=== PATIENT | male | born 1985 | race Caucasian/White ===

== ENCOUNTER 2020-11-01 09:48 | Outpatient (REF) | payer OTHER, SELFPAY ==
[2020-11-01 10:19] LABS: COVID-19 Test Positive (Negative)
== END 2020-11-01 09:49 | disposition home or self-care (01) ==
LOC: HO.LAB 09:48
PROVIDERS: Visit Provider Internal Medicine
DX: Z20.822 Contact with and (suspected) exposure to COVID-19 (principal)
CPT/HCPCS: 36415; 87635; C9803

== ENCOUNTER 2020-11-21 07:53 | Outpatient (REF) | payer OTHER, SELFPAY ==
[2020-11-21 08:11] LABS: COVID-19 Test Negative (Negative)
== END 2020-11-21 07:54 | disposition home or self-care (01) ==
LOC: HO.LAB 07:53
PROVIDERS: Visit Provider Internal Medicine
DX: Z20.822 Contact with and (suspected) exposure to COVID-19 (principal)
CPT/HCPCS: 36415; 87635; C9803

== ENCOUNTER 2021-03-23 10:02 | Emergency (ER) | payer MEDICAID, SELFPAY ==
--- NOTE | ~2021-03-23 | US_ITS ---
EXAMINATION: ULTRASOUND EXTREMITY NONVASCULAR, RIGHT CLINICAL INFORMATION: Right groin, question abscess COMPARISON: None TECHNIQUE: Grayscale and sonographic images of the right groin were obtained. FINDINGS: Within the right groin are 2 avascular oval appearing foci the first measures 1.1 x 0.7 x 0.8 cm, heterogeneous in appearance, nonspecific. The second or hyperechoic measures 1.0 x 0.6 x 0.8 cm with a lentiform-like appearance possibly representing a lymph node, though also nonspecific. No focal collections are otherwise identified. US/US extremity nonvascular IMPRESSION: Within the right groin are 2 avascular oval appearing foci one of which demonstrates heterogeneous appearance of the second of which demonstrates a more hyperechoic lentiform-like appearance possibly representing a lymph node. The largest of the 2 measures up to 1.1 cm. Findings are nonspecific but may represent morphologically abnormal-appearing lymph nodes (the first greater than second). Consider short interval follow-up and correlation for recent infectious/inflammatory etiology.
[2021-03-23 10:14] VITALS: BP 115/64; PULSE 65; RESP 18; TEMP 36.6; O2SAT 98; BMI 35.5
[2021-03-23] MEDS: Ibuprofen 800 MG TABLET PO (10:53)
[2021-03-23] MEDS: oxyCODONE HCl Immed Release 5 MG TABLET PO (10:53)
[2021-03-23 11:43] VITALS: BP 108/62; PULSE 46; RESP 18; TEMP 36.6; O2SAT 98
--- NOTE | 2021-03-23 11:59 | ED.GENADULT ---
HPI - General Adult General Chief complaint: Wound/Laceration Stated complaint: lump near groin Time Seen by Provider: 03/23/21 10:35 Source: patient Mode of arrival: ambulatory Limitations: no limitations History of Present Illness HPI narrative: This is a 35-year-old male that presents to the emergency department with a lump in his groin area. He states that he 1st noticed this lump about a week ago, and has progressively been worsening in terms of pain, and size. He states this started as a small lump and has progressively grown over the past week. He states that the pain is intolerable, and the area feels warm, and hard. He states he has not shaved for over a month, and he is not attempted to pop pimples in the area. He has no significant past medical history, and denies history of MRSA. He denies, fevers, chills, chest pain, shortness of breath, nausea, vomiting, diarrhea, abdominal pain. Onset (ago): week(s) (One week progressively worsening) Location: lower extremity (Right groin) Radiation: non-radiation Severity: moderate Severity scale (1-10): 9 Quality: burning and sharp Pain Consistency: constant Relieving factors: none Exacerbating factors: none Associated symptoms: denies other symptoms Related Data Previous Rx's Medication Instructions Recorded cephalexin 500 mg capsule 500 mg PO Q6H 10 Days #40 cap 03/23/21 doxycycline monohydrate 100 mg 100 mg PO BID 10 Days #20 cap 03/23/21 capsule ibuprofen 800 mg tablet 800 mg PO Q8H PRN #14 tab 03/23/21 oxycodone 5 mg tablet 5 mg PO Q6H PRN #14 tab 03/23/21 Allergies Allergy/AdvReac Type Severity Reaction Status Date / Time codeine [CODEINE] Allergy Unknown AGITATION Unverified 03/23/20 19:35 Review of Systems Review of Systems: Constitutional : No Fever, No Chills, Cardiovascular : No Chest Pain, No SOB Respiratory : No Dyspnea Gastrointestinal : No abdominal pain Musculoskeletal : No Joint Swelling Skin : + rash/induration and redness to the groin, and mons pubis. No Foreign bodies, No rash, No surrounding erythema Neuro : No Weakness, No Numbness/tingling Psych : No SI/HI/thoughts of self injury Yes all other systems are reviewed and are negative [facility] Social History Social History Advance Directives: Yes Advance Directives Information Provided: Yes Advance Directives on File: No Physical Exam Vital Signs: Vital Signs: Last Vital Signs Temp 97.8 F 03/23/21 11:43 Pulse 46 L 03/23/21 11:43 Resp 18 03/23/21 11:43 BP 108/62 03/23/21 11:43 Pulse Ox 98 03/23/21 11:43 Body Mass Index 35.5 Vital signs have been reviewed as normal and appeared to be correct. Blood pressure normal. Heart rate normal. Respiration rate normal. Temperature normal. Oxygen saturation normal. Appearance: Alert. Oriented X3. No acute distress. Patient appears well, and does not appear toxic. Head: Normal external exam. Normocephalic. Atraumatic. Able to rotate head bilaterally. Neck: Normal inspection. Neck supple. FROM. No adenopathy. Trachea midline. CVS: + slow rate, normal rhythm ( normal per patient) No murmurs noted. Pulses normal throughout. Respiratory: No respiratory distress. Painless inspiration. Breath sounds normal. No wheezes/rales/rhonchi noted. Chest nontender. No accessory muscle usage noted or decreased air movement noted. Abdomen: Soft and nontender. Bowel sounds normal in all 4 quadrants. No distention noted. No organomegaly noted. No visible injury noted. Back: No CVA tenderness. Full range of motion noted. Skin: Skin warm and dry. Normal skin color. Normal skin turgor. + erythema, calor and induration are noted to the right groin, and right area of the mons pubis. + minimal streaking noted from right mons pubis to right groin. No ingrown hair, abscess, discharge noted upon inspection. + tenderness to palpation to the right groin, and mons pubis. lymphadenopathy noted to the area. Extremities: No lower extremity edema. Extremities exhibit normal range of motion. Extremities nontender. Able to shrug shoulders bilaterally and keep up against resistance. Neuro: Oriented X 3. No motor deficit. No sensory deficit. Reflexes normal. Moving all extremities. No focal motor deficits. Cranial nerves II-XI intact bilaterally. Facial strength normal. Normal cognition. Speech normal. Gait normal. Strength 5/5 throughout. No pronator drift. No tremor noted. No fasciculations noted. No rigidity noted. Muscle tone normal throughout. No asterixis noted. [id number] test normal. Heel to tipton test normal. Tandem gait normal. Does not sway with eyes open. Romberg test negative. Rapid alternating movement upper extremity normal. Rapid alternating movement lower extremity normal. Hand drop from overhead Misses face. NIHSS score 0. Course Course Course Narrative: This is a 35-year-old male that presents to the emergency department with pain to the groin, and mons pubis area. He states that a week ago he noticed a small lump in the mons pubis area that has progressively grown in size, and it has become more painful. He states that it moved from his mons pubis area to his groin. He explains that the pain is not tolerable, and worsening. He has no history of MRSA. Upon physical examination erythema, calor and induration are noted to the mons pubis, and right groin. There is minimal streaking appreciated. Based off of the physical exam findings, and history an ultrasound of the groin has been ordered to rule out abscess. Upon reviewing the ultrasound results it is unclear whether not this is a abscess. For this reason the patient will be sent home on antibiotics he has been instructed to return to the emergency department and or follow-up with his PCP if symptoms worsen. He has been educated on warning signs of infection. Medical Decision Making Imaging Data Extremity ultrasound: Attestation: I personally reviewed and interpreted this imaging study as follows: Radiologist's impression: FINDINGS: Within the right groin are 2 avascular oval appearing foci the first measures 1.1 x 0.7 x 0.8 cm, heterogeneous in appearance, nonspecific. The second or hyperechoic measures 1.0 x 0.6 x 0.8 cm with a lentiform-like appearance possibly representing a lymph node, though also nonspecific. No focal collections are otherwise identified.? US/US extremity nonvascular IMPRESSION: Within the right groin are 2 avascular oval appearing foci one of which demonstrates heterogeneous appearance of the second of which demonstrates a more hyperechoic lentiform-like appearance possibly representing a lymph node. The largest of the 2 measures up to 1.1 cm. Findings are nonspecific but may represent morphologically abnormal-appearing lymph nodes (the first greater than second). Consider short interval follow-up and correlation for recent infectious/inflammatory etiology.? Discharge Plan Discharge Clinical Impression: Abscess, Cellulitis, Lymphadenopathy Patient Disposition: Home, Self-Care Instructions: Cellulitis (ED), Lymphadenopathy (ED), Abscess (ED) Additional Instructions: It is important that you take all your antibiotics as prescribed, do not stop some early, or skip doses. Because of one of your antibiotics it is important for you to stay out direct sunlight Apply warm compresses to the affected area. Return to the emergency department if symptoms worsen, or new symptoms arise such as fevers, chills, shortness of breath or chest pain. Follow-up with your primary care provider Prescriptions: New doxycycline monohydrate 100 mg capsule 100 mg PO BID 10 Days Qty: 20 RF: 0 cephalexin 500 mg capsule 500 mg PO Q6H 10 Days Qty: 40 RF: 0 ibuprofen 800 mg tablet 800 mg PO Q8H PRN (Reason: pain) Qty: 14 RF: 0 oxycodone 5 mg tablet 5 mg PO Q6H PRN (Reason: pain) Qty: 14 RF: 0
== END 2021-03-23 13:01 | disposition home or self-care (01) ==
PROVIDERS: Emergency Provider Emergency Medicine
DX: L03.314 Cellulitis of groin (principal); R59.1 Generalized enlarged lymph nodes; Z79.899 Other long term (current) drug therapy
CPT/HCPCS: 76882; 99284

== ENCOUNTER 2021-03-26 11:16 | Emergency (ER) | payer MEDICAID, SELFPAY ==
[2021-03-26 12:04] VITALS: BP 116/65; PULSE 62; RESP 18; TEMP 36.8; O2SAT 100; BMI 36.2
== END 2021-03-26 16:18 | disposition left against medical advice (07) ==
PROVIDERS: Emergency Provider Emergency Medicine
DX: R10.30 Lower abdominal pain, unspecified (principal)
CPT/HCPCS: 99281; 99282

== ENCOUNTER 2021-03-27 09:37 | Observation (INO) | payer MEDICAID, SELFPAY ==
--- NOTE | ~2021-03-27 | CT_ITS ---
EXAMINATION: CT ABDOMEN AND PELVIS WITH CONTRAST CLINICAL INFORMATION: Right-sided groin abscess. Rule out sinus tracking. COMPARISON: None TECHNIQUE: Multidetector volumetric images were obtained from the superior aspect of the liver through the pubic symphysis following administration 85 mL of Omnipaque 350 intravenous contrast. Sagittal and coronal reformatted images were obtained on the technologist's workstation. Oral contrast: No. This CT examination was performed using dose optimization techniques as appropriate, variously including the following: *Automated exposure control *Adjustment of mA and/or kV according to patient size (this includes techniques or standardized protocols for targeted exams where dose is matched to indication/reason for exam; i.e. extremities or head) *Use of iterative reconstruction technique DLP: 960 mGy-cm FINDINGS: LUNG BASES: The lung bases are clear. LIVER, GALLBLADDER, AND BILIARY TREE: The gallbladder is unremarkable with no evidence of radiopaque gallstones, gallbladder wall thickening, or obvious pericholecystic inflammatory changes. PANCREAS: Unremarkable. SPLEEN: Unremarkable. ADRENAL GLANDS: Unremarkable. KIDNEYS AND URETERS: Both kidneys are normal size, shape and position. There are no radiopaque calculi, enhancing renal mass or hydronephrosis. BLADDER: Unremarkable. GASTROINTESTINAL TRACT: There is scattered stool and gas seen throughout the colon without significant distention. The small bowel loops are normal caliber. The appendix is normal caliber. ABDOMINAL WALL: No significant hernia is appreciated. There is no abscess seen in the right groin. LYMPH NODES: Normal. VASCULAR: Unremarkable. PELVIC VISCERA: Unremarkable. OSSEOUS STRUCTURES: No lytic or sclerotic process seen. CT/CT abdomen pelvis w con IMPRESSION: No acute intra-abdominal process seen. Especially, there is no right groin mass, abscess, adenopathy or hernia. Normal appendix. Mild constipation.
[2021-03-27 09:40] VITALS: BP 132/68; PULSE 59; RESP 18; TEMP 36.7; O2SAT 100; BMI 36.2
--- NOTE | 2021-03-27 09:50 | ED.SKABFB ---
HPI - Skin/Abscess/Foreign Bdy General Chief complaint: Skin/Abscess/Foreign Body Stated complaint: cyst Time Seen by Provider: 03/27/21 09:40 Source: patient Mode of arrival: ambulatory Limitations: no limitations History of Present Illness HPI narrative: This is a 35-year-old male who is seen here on 03/23/2021 for an abscess in the right groin he is prescribed doxycycline, and Keflex which he just started taking yesterday beacause he reports he has no insurance and had to wait to get paid to fill the medications prescribed. He states that the abscess is getting worse, and becoming more painful and tender. Ambulation makes the pain worse. he reports after taking the antibiotics about 4-5 hours after he developed nausea, vomiting, subjective fevers and chills. He reports 10/10 pain. He denies shortness of breath, chest pain, abdominal pain, recent sick contacts. MD complaint: abscess/boil (Right groin) Onset (ago): day(s) (4) Severity: severe Severity scale (1-10): 10 Quality: constant Pain Consistency: constant Relieving factors: none Exacerbating factors: movement Associated symptoms: fever, chills, nausea, vomiting and malaise Treatments prior to arrival: other (Doxycycline and Keflex.) Related Data Home Medications Medication Instructions Recorded Confirmed cephalexin 500 mg tablet 500 mg PO Q6H 03/27/21 03/27/21 doxycycline monohydrate 100 mg 100 mg PO BID 03/27/21 03/27/21 capsule ibuprofen 200 mg tablet 400 mg PO Q6H PRN 03/27/21 03/27/21 Allergies Allergy/AdvReac Type Severity Reaction Status Date / Time codeine [CODEINE] Allergy Unknown AGITATION Verified 03/27/21 09:40 Review of Systems Review of Systems: Constitutional : No Weight loss, + Fever, + Chills, No Night Sweats, No Fatigue, + Malaise ENT/Mouth: No ear pain, No sore throat, No Difficulty swallowing Cardiovascular : No Chest Pain, No SOB, No Dyspnea on Exertion, No Orthopnea, NoEdema, No Palpitations Respiratory : No Cough, No Sputum, No Wheezing, No Dyspnea Gastrointestinal : + Nausea, + Vomiting, No abdominal pain, No Diarrhea, No blood streaked emesis, No coffee-ground emesis, No gross hematemesis, No blood streak stool, No gross hematochezia, No Melena Genitourinary : No irregular bleeding, No Dysuria, No Urinary Frequency, No Hematuria,No Urinary Incontinence, No Urgency, No Flank Pain Musculoskeletal : No joint pain, No Myalgias, No Joint Swelling Skin : + purulent drainage & pain from abcess in right groin area, + redness to right groin Neuro : No Weakness, No Numbness, No Paresthesias, No Loss of Consciousness, NoDizziness, No Headache Psych : No Social Issues, Heme/Lymph: No Bruising, No Bleeding,No Lymphadenopathy Endocrine : No Polyuria, No Polydipsia, No Temperature Intolerance Yes all other systems are reviewed and are negative [facility] Social History Social History Advance Directives: No Advance Directives Information Provided: No Physical Exam Vital Signs: Vital Signs: Last Vital Signs Temp 98.8 F 03/27/21 12:32 Pulse 82 03/27/21 12:32 Resp 18 03/27/21 12:32 BP 114/56 L 03/27/21 12:32 Pulse Ox 98 03/27/21 12:32 Body Mass Index 36.2 vital signs have been reviewed as normal and appeared to be correct. Blood pressure normal. Heart rate normal. Respiration rate normal. Temperature normal. Oxygen saturation normal. Appearance: Alert. Oriented X3. No acute distress. + Patient is an evident pain, and appears uncomfortable. Head: Normal external exam. Normocephalic. Eyes: PERRLA. EOMI. Conjunctiva and sclera normal. Eyelids normal. ENT: Pharynx normal. Uvula midline. Moist mucous membranes. No trismus noted. No drooling noted. No muffled voice noted. Neck: Normal inspection. Neck supple. FROM. No adenopathy. No meningeal signs. CVS: Normal heart rate and rhythm. Heart sound normal. No murmurs noted. Pulses normal throughout. Respiratory: No respiratory distress. Painless inspiration. Breath sounds normal. No wheezes/rales/rhonchi noted. Chest nontender. No accessory muscle usage noted or decreased air movement noted. Abdomen: Soft and nontender. Nondistended. No guarding. No rigidity. Bowel sounds normal in all 4 quadrants. No distention noted. No organomegaly noted. No visible injury noted. No rebound tenderness. Back: No CVA tenderness. Full range of motion noted. Skin: Skin warm and dry. Normal skin color. Normal skin turgor. + two [id number] purulent draining abscesses are noted in the right groin/edge of the lateral right mons pubis region region, + erythema and calor to right groin, + vertical right lymphadenopathy, unable able to rule out sinustracts under abscess Extremities: Extremities exhibit normal range of motion. Extremities nontender. Neuro: Oriented X 3. No motor deficit. No sensory deficit. Reflexes normal. Normal steady gait. Course Course Course Narrative: 10am - This is a 37 year old male who was seen in the emergency department on 03/23/2021 for an abscess in the right groin. On that day an US was done which showed: Within the right groin are 2 avascular oval appearing foci one of which demonstrates heterogeneous appearance of the second of which demonstrates a more hyperechoic lentiform-like appearance possibly representing a lymph node. The largest of the 2 measures up to 1.1 cm. Findings are nonspecific but may represent morphologically abnormal-appearing lymph nodes (the first greater than second). Consider short interval follow-up and correlation for recent infectious/inflammatory etiology.? Based off of these ultrasound findings the abscess was not large enough so it was not drained , he was discharged home on doxycycline and Keflex. He has not been able to tolerate these antibiotics, and he reports nausea, and vomiting at home. Today he presents with worsening right groin pain, fevers, chills, nausea, vomiting for 4 days. Upon physical examination he is afebrile, not tachypneic, and not tachycardic, there is exquisite tenderness to the right groin, and mons pubis. There is also worsening erythema, and calor to the area. Right sided vertical lymphadenopathy is noted. There are 3 evident abscesses, 1 of which is draining purulent discharge. The 2 other are tender and appear much larger than they did 4 days ago. Unable to rule out sinus tract at this time Plan- CBC, CMP, COVID, ESR, CRP, lactic, Mag, UA and blood cultures have been ordered. Fluids, Zosyn, Zofran, morphineand topical lidocaine have also been ordered. He has also been moved over to the main emergency department, as he requires IV antibiotics and possible hospital admission. A CT scan of the abdomen and pelvis have been ordered to rule out sinus tracking. Reevaluation(s) Reevaluation #1: 1352-CT scan shows no acute intra-abdominal process is seen no right groin mass abscess adenopathy or hernia. No leukocytosis, normal lactic acid. Just spoke to Dr. Gómez will be admitting the patient to the medical service. He recommended starting the patient on vancomycin, and reaching out for surgical consult (Dr. Lopez) Both of these orders have been put in. Reevaluation #2: Dr. Lopez has admitted the patient to his service and the hospitalist will consult. Time: 16:52 MDM - Skin/Abscess/Foreign Bdy Medical Records Attestation: I reviewed the patient's medical records. Lab Data Attestation: I reviewed the patient's lab results. Result diagrams: 03/27/21 10:35 03/27/21 10:35 Labs: Lab Results 03/27/21 03/27/21 03/27/21 Range/Units 10:35 10:35 10:35 WBC 7.5 (4.8-10.8) X10*3/uL RBC 4.25 L (4.60-5.80) X10*6/uL Hgb 13.2 L (14.0-18.0) g/dl Hct 37.2 L (42-52) % MCV 87.5 (80-98) fL MCH 31.1 (27.0-33.0) pg MCHC 35.5 (31.0-36.0) g/dl RDW 11.9 (11.0-16.0) % Plt Count 189 (160-400) X10*3/uL MPV 11.9 (9.4-12.4) fL Immature Gran % (Auto) 0.3 (0.0-0.4) % Neut % (Auto) 70.5 (45-73) % Lymph % (Auto) 18.7 L (20-40) % Mora % (Auto) 7.3 (2-11) % Eos % (Auto) 2.9 (0-4) % Baso % (Auto) 0.3 (0-2) % Lymph # (Auto) 1.4 (1.2-4.9) X10*3/uL Mora # (Auto) 0.6 (0.1-1.2) X10*3/uL Eos # (Auto) 0.2 (0.0-0.4) X10*3/uL Baso # (Auto) 0.0 (0.0-0.2) X10*3/uL Abs Immat Gran (auto) 0.02 (0.00-0.03) X10*3/uL Absolute Neuts (auto) 5.3 (2.0-8.3) X10*3/uL Absolute Nucleated RBC 0.000 (0.0-0.012) X10*3/uL Nucleated RBC % (auto) 0.0 (0.0-0.2) /100WBC ESR 44 H (0-15) MM/HR Sodium 139 (135-145) mmol/L Potassium 3.7 (3.3-5.1) mmol/L Chloride 105 (96-108) mmol/L Carbon Dioxide 26 (22-29) mmol/L Anion Gap 12 (12-20) BUN 7 L (9-16) mg/dL Creatinine 0.90 (0.5-1.4) mg/dL Estim Creat Clear Calc 149.6 Estimated GFR > 60 Random Glucose 138 H (60-115) mg/dL Lactic Acid (0.5-2.0) mmol/L Calcium 8.8 (8.4-10.2) mg/dL Magnesium 2.0 (1.6-2.6) mg/dL Total Bilirubin 1.0 (0.0-1.0) mg/dL AST 18 (5-37) U/L ALT 32 (0-40) U/L Alkaline Phosphatase 73 (39-117) U/L C-Reactive Protein (< or = 0.50) mg/dL Total Protein 7.0 (6.5-8.0) g/dL Albumin 4.1 (3.5-5.0) g/dL COVID-19 (MYAH) (Negative) COVID-19 Clin Com 03/27/21 03/27/21 03/27/21 Range/Units 10:35 10:35 10:40 WBC (4.8-10.8) X10*3/uL RBC (4.60-5.80) X10*6/uL Hgb (14.0-18.0) g/dl Hct (42-52) % MCV (80-98) fL MCH (27.0-33.0) pg MCHC (31.0-36.0) g/dl RDW (11.0-16.0) % Plt Count (160-400) X10*3/uL MPV (9.4-12.4) fL Immature Gran % (Auto) (0.0-0.4) % Neut % (Auto) (45-73) % Lymph % (Auto) (20-40) % Mora % (Auto) (2-11) % Eos % (Auto) (0-4) % Baso % (Auto) (0-2) % Lymph # (Auto) (1.2-4.9) X10*3/uL Mora # (Auto) (0.1-1.2) X10*3/uL Eos # (Auto) (0.0-0.4) X10*3/uL Baso # (Auto) (0.0-0.2) X10*3/uL Abs Immat Gran (auto) (0.00-0.03) X10*3/uL Absolute Neuts (auto) (2.0-8.3) X10*3/uL Absolute Nucleated RBC (0.0-0.012) X10*3/uL Nucleated RBC % (auto) (0.0-0.2) /100WBC ESR (0-15) MM/HR Sodium (135-145) mmol/L Potassium (3.3-5.1) mmol/L Chloride (96-108) mmol/L Carbon Dioxide (22-29) mmol/L Anion Gap (12-20) BUN (9-16) mg/dL Creatinine (0.5-1.4) mg/dL Estim Creat Clear Calc Estimated GFR Random Glucose (60-115) mg/dL Lactic Acid 0.8 (0.5-2.0) mmol/L Calcium (8.4-10.2) mg/dL Magnesium (1.6-2.6) mg/dL Total Bilirubin (0.0-1.0) mg/dL AST (5-37) U/L ALT (0-40) U/L Alkaline Phosphatase (39-117) U/L C-Reactive Protein 7.80 H (< or = 0.50) mg/dL Total Protein (6.5-8.0) g/dL Albumin (3.5-5.0) g/dL COVID-19 (MYAH) Negative (Negative) COVID-19 Clin Com See Note Imaging Data ct scan of abd/pelvis c IV contrast : Attestation: I personally reviewed and interpreted this imaging study as follows: Radiologist's impression: FINDINGS: LUNG BASES: The lung bases are clear. LIVER, GALLBLADDER, AND BILIARY TREE: The gallbladder is unremarkable with no evidence of radiopaque gallstones, gallbladder wall thickening, or obvious pericholecystic inflammatory changes. PANCREAS: Unremarkable. SPLEEN: Unremarkable. ADRENAL GLANDS: Unremarkable. KIDNEYS AND URETERS: Both kidneys are normal size, shape and position. There are no radiopaque calculi, enhancing renal mass or hydronephrosis. BLADDER: Unremarkable. GASTROINTESTINAL TRACT: There is scattered stool and gas seen throughout the colon without significant distention. The small bowel loops are normal caliber. The appendix is normal caliber. ABDOMINAL WALL: No significant hernia is appreciated. There is no abscess seen in the right groin. LYMPH NODES: Normal. VASCULAR: Unremarkable. PELVIC VISCERA: Unremarkable. OSSEOUS STRUCTURES: No lytic or sclerotic process seen. IMPRESSION: No acute intra-abdominal process seen. Especially, there is no right groin mass, abscess, adenopathy or hernia. Normal appendix. Mild constipation. Critical Care Time Critical Care Time Critical Care Time: Yes Total Critical Care Time: 60 Attestation: I personally attest to this time spent taking care of the patient Discharge Plan Discharge Clinical Impression: Cellulitis, Abscess of skin or subcutaneous tissue, Nausea & vomiting Patient Disposition: Admitted As Inpatient
[2021-03-27] MEDS: Lidocaine 4 % Cream KIT 1 APPL TOPICAL (10:20)
[2021-03-27] MEDS: ondansetron HCL 4 MG/2 ML VIAL IVPUSH (10:20)
[2021-03-27] MEDS: Morphine Sulfate 4 MG/ML CARTRIDGE IVPUSH ×3 (10:20→23:55)
[2021-03-27] MEDS: Lidocaine HCl 1 % MPF 5 ML VIAL SUBCUT (10:26)
[2021-03-27] MEDS: 0.9 % Sodium Chloride 1,000 ML 999 ML IVCONT (10:26)
[2021-03-27] MEDS: Piperacillin Sodium/Tazobactam 3.375 GM in 0.9 % Sodium Chloride 50 ML IV ×2 (10:43→20:00)
[2021-03-27 10:47] LABS: MANUAL DIFF FLAG NO
[2021-03-27 10:49] LABS: Basophils Percent Auto 0.3 % (0-2); Eosinophils Absolute Auto 0.2 X10*3/uL (0.0-0.4); Eosinophils Percent Auto 2.9 % (0-4); Hematocrit 37.2 % (42-52); Hemoglobin 13.2 g/dl (14.0-18.0); Imm Gran Abs Auto 0.02 X10*3/uL (0.00-0.03); Imm Gran Pct Auto 0.3 % (0.0-0.4); Lymphocytes Absolute Auto 1.4 X10*3/uL (1.2-4.9); Lymphocytes Percent Auto 18.7 % (20-40); Mean Corpuscular HGB Conc 35.5 g/dl (31.0-36.0); Mean Corpuscular Hemoglobin 31.1 pg (27.0-33.0); Mean Corpuscular Volume 87.5 fL (80-98); Mean Platelet Volume 11.9 fL (9.4-12.4); Monocytes Absolute Auto 0.6 X10*3/uL (0.1-1.2); Monocytes Percent Auto 7.3 % (2-11); Neutrophils Absolute Auto 5.3 X10*3/uL (2.0-8.3); Neutrophils Percent Auto 70.5 % (45-73); Platelet Count 189 X10*3/uL (160-400); Red Blood Count 4.25 X10*6/uL (4.60-5.80); Red Cell Distribution Width 11.9 % (11.0-16.0); White Blood Count 7.5 X10*3/uL (4.8-10.8)
[2021-03-27 10:59] LABS: Lactic Acid 0.8 mmol/L (0.5-2.0)
[2021-03-27 11:03] LABS: Alanine Aminotransferase 32 U/L (0-40); Albumin Level 4.1 g/dL (3.5-5.0); Alkaline Phosphatase 73 U/L (39-117); Anion Gap 12 (12-20); Aspartate Amino Transferase 18 U/L (5-37); Blood Urea Nitrogen 7 mg/dL (9-16); Calcium 8.8 mg/dL (8.4-10.2); Carbon Dioxide 26 mmol/L (22-29); Chloride 105 mmol/L (96-108); Creatinine Clr Calc Pharmacy 149.6; Estimated Glomerular Filt Rate > 60; Glucose Random 138 mg/dL (60-115); Potassium 3.7 mmol/L (3.3-5.1); Sodium 139 mmol/L (135-145)
[2021-03-27 11:06] LABS: COVID-19 Test Negative (Negative)
[2021-03-27] MEDS: iohexoL 350 MG/ML 100 ML INFUS..BTL 85 ML IV (11:38)
[2021-03-27 11:47] LABS: Erythrocyte Sedimentation Rate 44 MM/HR (0-15)
--- NOTE | 2021-03-27 11:54 | PHA.MEDREC ---
Pharmacy Consult ? Medication Reconciliation Pharmacy has completed the medication reconciliation. There are no remarkable issue for provider's attention. Fanta Parr, SheriD
[2021-03-27 12:32] VITALS: BP 114/56; PULSE 82; RESP 18; TEMP 37.1; O2SAT 98
[2021-03-27] MEDS: vancomycin HCL 1,000 MG, vancomycin HCL 750 MG in 0.9 % Sodium Chloride 500 ML 267.5 MG IV (15:36)
--- NOTE | 2021-03-27 16:30 | PM.HPGS ---
History of Present Illness History of Present Illness Date of Service: 03/27/21 Chief complaint: cyst Narrative: Jf Rascon is a 35 year old male who returns to the emergency department for evaluation of a right groin abscess. He was previously evaluated on 03/23/2021 in the emergency department and noted to have an abscess in the right groin. This was treated with doxycycline and Keflex however the patient was unable to get the prescription filled did not start taking the medication until yesterday. In the meantime the abscess increased in size and pain. The cyst subsequently ruptured producing a large collection of pus. He continues to have pain at this site and return to the emergency department. After taking the antibiotics he developed nausea, vomiting, fever, and chills. He denies a previous history of infection in this location. He denies a previous history of surgery in this location. The patient is admitted for IV antibiotics and local wound care. Review of Systems Review of Systems: Yes all other systems are reviewed and are negative Constitutional: Constitutional: Reports chills, Reports fever(s) and Reports malaise Eyes: Eyes: Reports change in vision ENT: Reports sore throat Cardiovascular: Cardiovascular: Reports chest pain, Reports rapid heart rate and Reports irregular heart rhythm Respiratory: Respiratory: Reports chest congestion, Reports cough and Reports wheezing Gastrointestinal: Gastrointestinal: Reports no additional gastrointestinal complaints Musculoskeletal: Musculoskeletal: Reports no additional musculoskeletal complaints Integumentary/Breasts: Skin/Breast: Reports as per HPI Allergic/Immunologic: Allergic/Immunologic: Reports wheezing PMFSH Social History Social History Advance Directives: No Advance Directives Information Provided: No Meds Allergies Allergy/AdvReac Type Severity Reaction Status Date / Time codeine [CODEINE] Allergy Unknown AGITATION Verified 03/27/21 09:40 Active Medications: Current Medications Pharmacy Consult (Consult Rx Perform Med Rec) 1 each MISCELLANE ONCE PRN PRN Reason: Consult order Home Medications Medication Instructions Recorded Confirmed Last Taken Type cephalexin 500 mg tablet 500 mg PO Q6H 03/27/21 03/27/21 03/26/21 History doxycycline monohydrate 100 mg 100 mg PO BID 03/27/21 03/27/21 03/26/21 History capsule ibuprofen 200 mg tablet 400 mg PO Q6H PRN 03/27/21 03/27/21 03/26/21 History Physical Exam Vital Signs: Vital Signs: Last Vital Signs Temp 98.8 F 03/27/21 12:32 Pulse 82 03/27/21 12:32 Resp 18 03/27/21 12:32 BP 114/56 L 03/27/21 12:32 Pulse Ox 98 03/27/21 12:32 Body Mass Index 36.2 Const: General: no acute distress and well developed Nutritional Appearance: well nourished Orientation/consciousness: patient oriented x3 Limitations: no limitations HENMT: Head: Yes normocephalic and Yes atraumatic Ears: hearing grossly normal bilaterally Resp: Effort & Inspection: normal respiratory effort, no cough, no respiratory distress and no stridor Cardio: Jugular venous distension: no JVD Rate: regular rate Rhythm: regular rhythm GI: Inspection: Yes normal to inspection Palpation (GI): Soft to palpation, nontender, no guarding and not rigid Skin: Other: Abscess located in the crease between the leg and the scrotum with an open draining wound. This is tender to palpation but no fluctuance is appreciated. Purulent discharge is noted in the skin surrounding the open wound. Full body images: 1. Site of abscess right groin Neuro: General: patient oriented x3 Extrem: Other: Abscess as noted above General: Yes no clubbing, cyanosis or edema Results Results Labs: Short CBC 03/27/21 Range/Units 10:35 WBC 7.5 (4.8-10.8) X10*3/uL Hgb 13.2 L (14.0-18.0) g/dl Hct 37.2 L (42-52) % Plt Count 189 (160-400) X10*3/uL BMP 03/27/21 10:35 Sodium 139 Potassium 3.7 Chloride 105 Carbon Dioxide 26 BUN 7 L Creatinine 0.90 Calcium 8.8 Liver Function 03/27/21 Range/Units 10:35 Total Bilirubin 1.0 (0.0-1.0) mg/dL AST 18 (5-37) U/L ALT 32 (0-40) U/L Alkaline Phosphatase 73 (39-117) U/L Albumin 4.1 (3.5-5.0) g/dL Assessment and Plan (1) Abscess of skin or subcutaneous tissue: Status: Acute (2) Cellulitis: Status: Acute 35-year-old male patient with a worsening abscess of the right groin which spontaneously opened and is draining purulence fluid. On examination there is an open wound in the right groin with an area of inflammation surrounding this. No further incision and drainage is required however the patient would benefit from hospitalization and IV antibiotics to reduce the surrounding cellulitis. Quality Stroke Does the patient have a stroke diagnosis?: No VTE Prior VTE?: No VTE Risk Level:: Surgical - low VTE Device Contraindication: N/A - Device Ordered VTE Drug Contraindication: Treatment Not Indicated Procedures Date of Service Date of Service: 03/27/21
[2021-03-27 17:29] LABS: Appearance Urine CLEAR; Color Urine YELLOW; Glucose Urine UA NEG (NEG); Leukocyte Esterase Urine NEG (NEG); Nitrite Urine NEG (NEG); Specific Gravity - Urine <= 1.005 (1.005-1.025); Urine Blood NEG (NEG); Urine Ketones NEG (NEG); Urine Protein NEG (NEG-TRACE)
[2021-03-27 19:50] VITALS: BP 135/69; PULSE 54; RESP 17; TEMP 37.1; O2SAT 100
[2021-03-27] MEDS: 0.9 % Sodium Chloride Flush 3 ML SYRINGE IVFLUSH (23:47)
[2021-03-28] VITALS (9 sets, daily range): BP systolic 106–140; BP diastolic 56–78; PULSE 54–100; RESP 15–19; TEMP 36.4–37.2; O2SAT 97–100
[2021-03-28] MEDS: Piperacillin Sodium/Tazobactam 3.375 GM in 0.9 % Sodium Chloride 50 ML IV ×4 (02:13→19:47)
--- NOTE | 2021-03-28 08:46 | MHC.CM.PN ---
pt claims that he is unhoused at the present. he says he is staying at friends or his cousins . they will also be giving him a ride [place]. pt says he has no existing svcs and uses no AD c ambulation. he denies the need for vna at [place] . dc plan is to his cousin's home no svcs. cm to cont. to follow.
[2021-03-28] MEDS: 0.9 % Sodium Chloride Flush 3 ML SYRINGE IVFLUSH ×3 (09:05→20:28)
[2021-03-28] MEDS: Morphine Sulfate 4 MG/ML CARTRIDGE IVPUSH ×3 (10:36→20:19)
--- NOTE | 2021-03-28 14:10 | MHC.CLN ---
NUTRITION CONSULT NUTRITION CONSULT DUE TO RIGHT GROIN ABSCESS. NOT PRESSURE RELATED. NO ADDITIONAL NUTRITION INTERVENTIONS.
--- NOTE | 2021-03-28 14:26 | PM.PNGS ---
Subjective Subjective Date of Service: 03/28/21 Interval history: Patient continues to have pain in the right groin with drainage. Pain increases with movement. Physical Exam Vital Signs: Vital Signs: Last Vital Signs Temp 97.5 F 03/28/21 12:00 Pulse 75 03/28/21 12:00 Resp 15 03/28/21 12:00 BP 140/56 H 03/28/21 12:00 Pulse Ox 100 03/28/21 12:00 Body Mass Index 36.2 Const: General: alert and awake Nutritional Appearance: well nourished Orientation/consciousness: patient oriented x3 Limitations: no limitations Resp: Effort & Inspection: normal respiratory effort GI: Inspection: Yes normal to inspection Palpation (GI): Soft to palpation, nontender, no guarding and not rigid Skin: Other: Right groin with an open and draining abscess collection, decreased erythema noted, tender to palpation still. Neuro: General: patient oriented x3 Extrem: Other: No edema Procedures Date of Service Date of Service: 03/28/21 Progress Note: A&P Assessment and plan (1) Abscess of skin or subcutaneous tissue: Status: Acute Assessment and Plan: 35-year-old male patient with an abscess in the right groin which drained spontaneously now is open and draining. He continues to have pain in the groin although the erythema on examination appears improved. Will continue the antibiotics and local wound care with dry sterile dressings applied to the wound. Fall Risk Details Current Medications: Current Medications Acetaminophen (Acetaminophen 325 Mg Tablet) 650 mg PO Q6H PRN PRN Reason: Pain, Mild (Pain Scale 1-3) Piperacillin Sod/Tazobactam (Sod 3.375 gm/ Sodium Chloride) 50 mls @ 100 mls/hr IV Q6H [facility] Last Admin: 03/28/21 13:50 Dose: 100 mls/hr Documented by: Morphine Sulfate (Morphine Sulfate 4 Mg/Ml Cartridge) 4 mg IVPUSH Q4H PRN; Protocol PRN Reason: Pain, Severe (Pain Scale 7-10) Last Admin: 03/28/21 10:36 Dose: 4 mg Documented by: Ondansetron HCl (Ondansetron Hcl 4 Mg/2 Ml Vial) 4 mg IVPUSH Q8H PRN PRN Reason: Nausea and Vomiting Oxycodone HCl (Oxycodone Hcl Immed Release 5 Mg Tablet) 5 mg PO Q6H PRN PRN Reason: Pain, Moderate (Pain Scale 4-6 Pharmacy Consult (Consult Rx Perform Med Rec) 1 each MISCELLANE ONCE PRN PRN Reason: Consult order Sodium Chloride (0.9 % Sodium Chloride Flush 3 Ml Syringe) [facility] Last Admin: 03/28/21 09:05 Dose: 3 ml Documented by: Zolpidem Tartrate (Zolpidem Tartrate 5 Mg Tablet) 5 mg PO BEDTIME PRN PRN Reason: Insomnia Time Spent With Patient Time: Total time spent is greater than 50% in coordination of care (as documented) at patient's floor/unit and/or counseling patient: Time with patient: 15 - 24 minutes Quality Stroke Does the patient have a stroke diagnosis?: No VTE Prior VTE?: No VTE Risk Level:: Surgical - low VTE Device Contraindication: N/A - Device Ordered VTE Drug Contraindication: Treatment Not Indicated
[2021-03-29] MEDS: Piperacillin Sodium/Tazobactam 3.375 GM in 0.9 % Sodium Chloride 50 ML IV ×2 (03:30→07:46)
[2021-03-29 04:00] VITALS: BP 128/76; PULSE 57; RESP 16; TEMP 36.9; O2SAT 98
[2021-03-29 07:40] VITALS: BP 118/57; PULSE 54; RESP 16; TEMP 36.4; O2SAT 97
--- NOTE | 2021-03-29 07:41 | PM.DS ---
DS: Providers Provider Date of Service: 03/29/21 Date of admission: 03/27/21 16:29 Date of discharge: 03/29/21 Primary care physician: Subha Physician Admitting clinician: Bora Lopez Discharging clinician: Bora Lopez DS: Diagnosis Discharge Diagnosis (1) Abscess of skin or subcutaneous tissue: Status: Acute DS: Summary Hospital Course Hospital Course: Jf Rascon is a 35 year old male who returns to the emergency department for evaluation of a right groin abscess.? He was previously evaluated on 03/23/2021 in the emergency department and noted to have an abscess in the right groin.? This was treated with doxycycline and Keflex however the patient was unable to get the prescription filled did not start taking the medication until yesterday.? In the meantime the abscess increased in size and pain.? The cyst subsequently ruptured producing a large collection of pus.? He continues to have pain at this site and return to the emergency department.? After taking the antibiotics he developed nausea, vomiting, fever, and chills.? He denies a previous history of infection in this location.? He denies a previous history of surgery in this location.? The patient is admitted for IV antibiotics and local wound care. He was admitted to the surgery service and started on Zosyn. The wound remained open and draining some purulent discharge. DSD were applied to the wound. Over the next two days, the pain and swelling improved. He will be continued on the oral antibiotics as previously prescribed by the ED including Doxycycline 100 mg po BID and Keflex 500 mg po Q6H. I asked him to return to the office in approximately 1 week for a wound check. Time spent discussing smoking cessation with patient: 3 to 10 minutes Status at Discharge Functional status at discharge: independent ambulation Overall status at discharge: patient is back to baseline Time Spent with Patient Time attestation: Total time spent providing and/or coordinating discharge services: Discharge coordination time: Less than 30 minutes Quality: Stroke Does the patient have a stroke diagnosis?: No Physical Exam Vital Signs: Vital Signs: Last Vital Signs Temp 98.4 F 03/29/21 04:00 Pulse 57 03/29/21 04:00 Resp 16 03/29/21 04:00 BP 128/76 03/29/21 04:00 Pulse Ox 98 03/29/21 04:00 Body Mass Index 36.2 Const: General: cooperative and comfortable Nutritional Appearance: well nourished Orientation/consciousness: patient oriented x3 Limitations: no limitations HENMT: Head: Yes normocephalic and Yes atraumatic Resp: Effort & Inspection: normal respiratory effort GI: Inspection: Yes normal to inspection Palpation (GI): Soft to palpation, nontender, no guarding and no hepatosplenomegaly Skin: Other: Open wound right groin, no further erythema and decreased tenderness. Wound is much improved Neuro: General: patient oriented x3 Extrem: Other: wound as noted above General: Yes no clubbing, cyanosis or edema DS: Data Data Completed and Pending Labs on day of discharge: Preliminary micro results at discharge 03/27/21 10:35 Blood Culture - Preliminary Blood - Venous No growth after 24 hours. 03/27/21 10:35 Blood Culture - Preliminary Blood - Venous No growth after 24 hours. Discharge Plan Discharge Patient Disposition: Home, Self-Care Discharge Diagnosis: Abscess right groin Referrals: Bora Lopez MD [Physician] - 1 Week Physician,None [Primary Care Provider] - 1 Week Discharge Medications: Continued doxycycline monohydrate 100 mg Capsule 100 mg PO BID RF: 0 ibuprofen 200 mg Tablet 400 mg PO Q6H PRN (Reason: PAIN/FEVER) RF: 0 cephalexin 500 mg Tablet 500 mg PO Q6H RF: 0 Discharge Orders: Discharge Order (Routine); Ordered 03/29/21 Ordered By: Bora Lopez Diet: advance to usual diet Activity on Discharge: As tolerated Stand Alone Forms: Patient Portal Discharge page Care Plan Goals: resolution of right groin abscess Health Concerns: pain and swelling in right groin Plan of Treatment: IV antibiotics transitioned to oral antibiotics Warm soaks Dry dressings to right groin wound Assessment: Abscess, cellulitis right groin Nausea and vomiting
[2021-03-29] MEDS: 0.9 % Sodium Chloride Flush 3 ML SYRINGE IVFLUSH (07:46)
--- NOTE | 2021-03-29 08:28 | MHC.CM.PN ---
PATIENT IS DISCHARGED HOME - SELF CARE. RN AWARE OF PLAN.
== END 2021-03-29 10:45 | disposition home or self-care (01) ==
LOC: HO.ED 13:09 → HO.EDOVER 16:45 → HO.S3 16:47
PROVIDERS: Physician Assistant Medical; Admitting Provider Surgery; Emergency Provider Emergency Medicine; Visit Provider Surgery
DX: L02.214 Cutaneous abscess of groin (principal); L03.314 Cellulitis of groin; R11.2 Nausea with vomiting, unspecified; Z20.822 Contact with and (suspected) exposure to COVID-19; Z88.6 Allergy status to analgesic agent; Z79.899 Other long term (current) drug therapy
CPT/HCPCS: 36415; 74177; 80053; 81003; 83605; 83735; 85025; 85652; 86140; 87040; 87635; 96361; 96365; 96366; 96367; 96375; 96376; 99218; 99284; 99291; J2270; J2405; J2543; J3370; Q9967

== ENCOUNTER 2021-06-20 13:59 | Outpatient (REF) | payer MEDICAID, SELFPAY ==
[2021-06-20 15:15] LABS: COVID-19 Test Negative (Negative)
== END 2021-06-20 14:00 | disposition home or self-care (01) ==
LOC: HO.LAB 13:59
PROVIDERS: Visit Provider Internal Medicine
DX: Z20.822 Contact with and (suspected) exposure to COVID-19 (principal)
CPT/HCPCS: 36415; 87635; C9803

== ENCOUNTER 2021-08-20 09:46 | Outpatient (REF) | payer MEDICAID, SELFPAY ==
[2021-08-20 10:14] LABS: Binax Internal Control QC Valid; Binax Now Covid-19 Ag Negative (Negative); Binax Performed by: HO.BONILM
== END 2021-08-20 09:47 | disposition home or self-care (01) ==
LOC: HO.HMGCLDS 09:46
PROVIDERS: Visit Provider Physician Assistant
DX: Z13.89 Encounter for screening for other disorder (principal)

== ENCOUNTER 2021-10-04 09:44 | Emergency (ER) | payer MEDICAID, SELFPAY ==
--- NOTE | 2021-10-04 09:50 | ED.GENADULT ---
HPI - General Adult General Chief complaint: General Medical Stated complaint: Knee pain L & R Time Seen by Provider: 10/04/21 09:50 Source: patient Limitations: no limitations History of Present Illness HPI narrative: Patient presents with bilateral quadriceps pain. Pain increases with range of motion and stretching. Patient states for ongoing symptoms x2 days. Patient states no pain in the hamstring area. Patient states he has recently dancing playing with his kids and felt like he pulled a muscle. Pain is 5/10. Patient denies any prior injuries to both knees. Patient denies any recent falls. Symptoms are [id number]. No shortness of breath fever chills or other complaints at this time. Related Data Previous Rx's Medication Instructions Recorded amoxicillin 875 mg-potassium 1 tab PO Q12H 10 Days #20 tab 08/20/21 clavulanate 125 mg tablet ibuprofen 600 mg tablet 600 mg PO Q8H PRN #20 tab 10/04/21 methocarbamol 750 mg tablet 750 mg PO TID PRN #20 tab 10/04/21 Allergies Allergy/AdvReac Type Severity Reaction Status Date / Time codeine [CODEINE] Allergy Unknown AGITATION Verified 08/20/21 09:08 Review of Systems Constitutional: Constitutional: Denies chills, Denies fatigue, Denies fever(s), Denies frequent falls, Denies headache(s) and Denies weakness ENT: Denies headache(s) Cardiovascular: Cardiovascular: Denies chest pain and Denies dyspnea Respiratory: Respiratory: Denies cough and Denies dyspnea Gastrointestinal: Gastrointestinal: Denies nausea and Denies vomiting Musculoskeletal: Musculoskeletal: Denies muscle weakness Comments: Bilateral quadriceps pain Neurologic: Denies frequent falls, Denies headache(s) and Denies weakness Endocrine: Endocrine: Denies fatigue [facility] Past Medical History Attestation statement: The following information was validated with the patient. Social History Social History Patient Tobacco Use Status: Never used Tobacco Advance Directives: No Advance Directives Information Provided: No service: No Current occupational status: unemployed Physical Exam ED Vital Signs: Vital Signs - 24 hr 10/04/21 09:56 Temperature 98.8 F Pulse Rate 59 Respiratory Rate 16 Blood Pressure 118/64 Pulse Oximetry 100 BMI result Body Mass Index 36.2 vital signs have been reviewed as normal and appeared to be correct. Blood pressure normal. Heart rate normal. Respiration rate normal. Temperature normal. Oxygen saturation normal. Appearance: Alert. Oriented X3. No acute distress. Head: Normal external exam. Normocephalic. Atraumatic. Eyes: PERRLA. EOMI. Conjunctiva and sclera normal. Eyelids normal. ENT: Pharynx normal. Uvula midline. Moist mucous membranes. Left ear TM intact and sharp no erythema Neck: Soft full range of motion, no JVD CVS: Heart regular rate and rhythm no murmurs and rubs Respiratory: Breath sounds are clear to auscultation bilaterally. No accessory muscle use noted. Back: Full range of motion noted. Skin: Skin warm and dry. Normal skin color. Normal skin turgor. No rashes/lesions/lacerations noted. Extremities: Positive tenderness in the mid quadriceps bilaterally pain increases range of motion or deep palpation. Posterior aspect of the hamstrings are nontender calf is nontender patient is ambulatory without ataxia moving all extremities purposely. Right and left knee no joint line tenderness negative joint laxity on drawer test. Patella tendon and patellar is nontender. Neuro: Oriented X 3. No motor deficit. No sensory deficit. Reflexes normal. Course Course Course Narrative: Quadriceps Muscle strain Muscle tear Bilateral knee pain. Muscle spasm. Left otitis externa or otitis media 09:59 Symptoms are consistent with muscle skeletal strain of the quadriceps likely due to over exertion and recent activity with his children. Patient also complaining of some left-sided ear popping your visualize TM is intact no erythema. Likely place patient on NSAIDs and Robaxin follow-up is needed. Discharge Plan Discharge Clinical Impression: Muscle strain Patient Disposition: Home, Self-Care Instructions: Muscle Strain (ED) Additional Instructions: Symptoms are likely due to over exertion muscle strain. Medications as directed Return if symptoms worsen Prescriptions: New ibuprofen 600 mg tablet 600 mg PO Q8H PRN (Reason: pain) Qty: 20 0RF methocarbamol 750 mg tablet 750 mg PO TID PRN (Reason: muscle spasm) Qty: 20 0RF No Action amoxicillin-pot clavulanate 875-125 mg tablet 1 tab PO Q12H 10 Days Qty: 20 0RF Stand Alone Forms: Work/School Release
[2021-10-04 09:56] VITALS: BP 118/64; PULSE 59; RESP 16; TEMP 37.1; O2SAT 100; BMI 36.2
== END 2021-10-04 10:21 | disposition home or self-care (01) ==
LOC: HO.ED 10:02
PROVIDERS: Emergency Provider Emergency Medicine
DX: S76.112A Strain of left quadriceps muscle, fascia and tendon, initial encounter (principal); S76.111A Strain of right quadriceps muscle, fascia and tendon, initial encounter; X50.1XXA Overexertion from prolonged static or awkward postures, initial encounter; Y93.41 Activity, dancing; Y92.039 Unspecified place in apartment as the place of occurrence of the external cause; Y99.9 Unspecified external cause status
CPT/HCPCS: 99283

== ENCOUNTER 2021-10-17 09:30 | Emergency (ER) | payer MEDICAID, SELFPAY ==
--- NOTE | ~2021-10-17 | CT_ITS ---
EXAMINATION: CT CERVICAL SPINE WITHOUT CONTRAST CLINICAL INFORMATION: Right arm tingling and neck pain COMPARISON: None TECHNIQUE: 3 mm thin axial and reformatted 2 mm thin sagittal and coronal images of cervical spine were obtained. This CT examination was performed using dose optimization techniques as appropriate, variously including the following: *Automated exposure control *Adjustment of mA and/or kV according to patient size (this includes techniques or standardized protocols for targeted exams where dose is matched to indication/reason for exam; i.e. extremities or head) *Use of iterative reconstruction technique DLP: 710 mGy-cm FINDINGS: There is reversal of cervical lordosis. The vertebral heights and alignment is normal. There is loss of C6-C7 disc height with mild ventral spondylosis. Rest of the disc heights are normal. The craniovertebral junction and C1-C2 disc levels appear unremarkable. There is no visible acute fracture, dislocation or subluxation seen. The prevertebral and paravertebral soft tissues are normal. The airways widely patent visualized thyroid, submandibular and parotid glands are symmetrical and normal. The lung apices are clear. CT/CT cervical spine wo con IMPRESSION: Reversal of cervical lordosis. There is no visible acute fracture, dislocation, lytic or sclerotic process. Fleischner guidelines were followed.
--- NOTE | ~2021-10-17 | XR_ITS ---
EXAMINATION: XR SHOULDER, RIGHT CLINICAL INFORMATION: Right shoulder pain x1 year COMPARISON: None TECHNIQUE: AP external rotation, Grashey, scapular Y, and axillary views of the right shoulder. FINDINGS: The bones and soft tissues are normal. No fracture. Glenohumeral and acromioclavicular alignment is anatomic with normal joint space. No abnormal soft tissue calcifications. XR/XR shoulder RT min 2V IMPRESSION: Unremarkable right shoulder exam.
[2021-10-17 09:34] VITALS: BP 113/71; PULSE 73; RESP 18; TEMP 36; O2SAT 99; BMI 36.2
--- NOTE | 2021-10-17 11:35 | ED.EXTPRO ---
HPI - Extremity Problem General Chief complaint: Extremity Problem Stated complaint: R side arm/shoulder pain Time Seen by Provider: 10/17/21 10:11 Source: patient Mode of arrival: ambulatory History of Present Illness HPI Narrative: 36-year-old male with no significant past medical history presenting to the ED complaining of right neck pain radiating to right shoulder and down RUE x2 weeks with associated numbness/tingling to right shoulder/deltoid. Reports remote history of hyperextension to R shoulder while playing/catching football a year ago, otherwise no recent injury/trauma or fall. Denies weakness. Denies back pain, CP, SOB Complaint: extremity pain and joint pain Onset (ago): week(s) Pain Consistency: constant Related Data Previous Rx's Medication Instructions Recorded amoxicillin 875 mg-potassium 1 tab PO Q12H 10 Days #20 tab 08/20/21 clavulanate 125 mg tablet ibuprofen 600 mg tablet 600 mg PO Q8H PRN #20 tab 10/04/21 methocarbamol 750 mg tablet 750 mg PO TID PRN #20 tab 10/04/21 acetaminophen 500 mg tablet 500 mg PO Q6H PRN #20 tab 10/17/21 (Tylenol Extra Strength) cyclobenzaprine 5 mg tablet 5 mg PO Q8H PRN 5 Days #14 tab 10/17/21 lidocaine 5 % topical patch 1 patch TOPICAL DAILY PRN #30 ea 10/17/21 (Lidoderm) MDD remove after 12 hours naproxen 500 mg tablet 500 mg PO BID PRN 10 Days #20 tab 10/17/21 Allergies Allergy/AdvReac Type Severity Reaction Status Date / Time codeine [CODEINE] Allergy Unknown AGITATION Verified 08/20/21 09:08 Review of Systems Review of Systems: Constitutional: No Fever, No Chills ENT/Mouth: No Ear Pain, No Nasal Congestion, No sore throat, No Rhinorrhea, No Swallowing Difficulty Cardiovascular: No Chest Pain, No SOB Respiratory: No Cough, No Sputum Gastrointestinal: No Nausea, No Vomiting, No Diarrhea, No Constipation, No Abdominal pain Genitourinary:, No Dysuria, No Urinary Frequency, No Urgency, No Flank Pain Musculoskeletal: + joint pain, No Myalgias, No Joint Swelling Skin: No Skin Lesions, No rash Neuro: No Weakness, + Numbness, + Paresthesias Yes all other systems are reviewed and are negative PMFSH Past Medical History Attestation statement: The following information was validated with the patient. Social History Social History Patient Tobacco Use Status: Never used Tobacco Advance Directives: No service: No Current occupational status: unemployed Physical Exam Vital Signs: Vital Signs: Last Vital Signs Temp 96.8 F 10/17/21 09:34 Pulse 73 10/17/21 09:34 Resp 18 10/17/21 09:34 BP 113/71 10/17/21 09:34 Pulse Ox 99 10/17/21 09:34 BMI result Body Mass Index 36.2 Const: General: cooperative, healthy appearing, no acute distress, alert, awake and Physically active Orientation/consciousness: patient oriented x3 Limitations: no limitations HEENT: Head: Yes normal to inspection and Yes atraumatic Ears: hearing grossly normal bilaterally General nose exam: Normal external nose present Face and sinus: Yes normal facial exam Eyes: General: appearance normal, both eyes and all related structures EOM: EOMs intact bilaterally Neck: Other: No midline cervical spinous tenderness/step-off or deformity. Right-sided paraspinal and right-sided trapezius muscle tenderness to palpation. + pain elicited when neck turned to left Neck: Yes normal visual inspection, Yes no meningeal signs, Yes supple and No anterior neck swelling Resp: Effort & Inspection: normal respiratory effort and no respiratory distress Cardio: Rate: regular rate Peripheral pulses: radial pulses present and ulnar radial pulses present : General: Yes no CVA tenderness Back/Spine/Pelvis: Other: No midline thoracic/lumbar spinous tenderness/step-off or deformity Back: no CVA tenderness Thoracic/Lumbar Spine: thoracic and lumbar spine normal to inspection Skin: Rashes: no rashes Wounds: no wounds Neuro: General: patient oriented x3 and no meningeal signs Gait exam (Neuro): Normal gait present Extrem: Other: Right shoulder without deformity tender to AC joint and deltoid. No erythema. Neurovascular intact distally. ROM intact with pain with external rotation. UE strength intact General: Yes normal to inspection Course Course Course Narrative: XR shoulder RT min 2V IMPRESSION: Unremarkable right shoulder exam. CT cervical spine wo con IMPRESSION: Reversal of cervical lordosis. There is no visible acute fracture, dislocation, lytic or sclerotic process.? ? >> results discussed with patient, recommended orthopedic follow-up. Discussed worrisome signs and symptoms MDM - Extremity (Nontraumatic) MDM Narrative Medical decision making narrative: 36-year-old male with no significant past medical history presenting to the ED complaining of right neck pain radiating to right shoulder and down RUE x2 weeks with associated numbness/tingling to right shoulder/deltoid. On exam vital signs stable, NAD/nontoxic, physical exam as above. Concern for cervical radiculopathy vs compression vs MSK spasming/strain vs rotator cuff/tendon or ligamental shoulder injury Plan: CT cervical spine, x-ray, orthopedic follow-up Medical Records Attestation: I reviewed the patient's medical records. Lab Data Attestation: I reviewed the patient's lab results. Discharge Plan Discharge Clinical Impression: Neck pain, Radiculopathy affecting upper extremity Acute shoulder pain Qualifiers: Laterality: right Qualified Code(s): M25.511 - Pain in right shoulder Patient Disposition: Home, Self-Care Instructions: Arthralgia (ED), Acute Neck Pain (ED) Additional Instructions: Your imaging studies were unremarkable. You may have a pinched nerve/muscle spasming or strain. You also could have a rotator cuff or tendon/ligamental injury of her shoulder. Please follow-up with orthopedics. Flexeril is a muscle relaxer, take at night as it makes you drowsy, do not drive, drink alcohol, or operate machinery while taking it Naproxen as an anti-inflammatory / pain medication, take with food Lidoderm patches are numbing patches, apply to painful area In addition take Tylenol at home If symptoms persist or worsen, pain becomes unbearable, you developed urinary retention or incontinence, or weakness return to the ED Prescriptions: New acetaminophen [Tylenol Extra Strength] 500 mg tablet 500 mg PO Q6H PRN (Reason: pain or fever) Qty: 20 0RF lidocaine [Lidoderm] 5 % adhesive patch,medicated 1 patch topical DAILY MDD remove after 12 hours PRN (Reason: pain) Qty: 30 0RF Rx Instructions: leave on most painful area for up to 12 hrs naproxen 500 mg tablet 500 mg PO BID PRN (Reason: pain) 10 Days Qty: 20 0RF cyclobenzaprine 5 mg tablet 5 mg PO Q8H PRN (Reason: pain (scale score 7-10)) 5 Days Qty: 14 0RF No Action ibuprofen 600 mg tablet 600 mg PO Q8H PRN (Reason: pain) Qty: 20 0RF methocarbamol 750 mg tablet 750 mg PO TID PRN (Reason: muscle spasm) Qty: 20 0RF amoxicillin-pot clavulanate 875-125 mg tablet 1 tab PO Q12H 10 Days Qty: 20 0RF Referrals: Sonia Kwan PA-C [Physician [employer] Livestock Farmer] - 1 week Stand Alone Forms: Work/School Release
== END 2021-10-17 12:07 | disposition home or self-care (01) ==
PROVIDERS: Emergency Provider Emergency Medicine
DX: M54.2 Cervicalgia (principal); M25.511 Pain in right shoulder; Z79.899 Other long term (current) drug therapy
CPT/HCPCS: 72125; 73030; 99283; 99284

== ENCOUNTER 2021-10-23 10:02 | Emergency (ER) | payer MEDICAID, SELFPAY ==
[2021-10-23 10:50] VITALS: BP 111/60; PULSE 51; RESP 18; TEMP 36.4; O2SAT 99; BMI 36.3
--- NOTE | 2021-10-23 11:38 | ED_ITS ---
HPI - Extremity Problem General Chief complaint: Extremity Injury, Upper Stated complaint: Pinched nerve R shoulder Time Seen by Provider: 10/23/21 11:30 Source: patient Mode of arrival: ambulatory Limitations: no limitations History of Present Illness HPI Narrative: Patient presents to the emergency department for evaluation of right shoulder pain x3 weeks. Pain radiates to the right lateral neck and down the right upper extremity. He does report some numbness felt over his right anterior shoulder. Denies any recent injury however does report an old football injury about a year ago for he hyperextended his arm. He was evaluated in the emergency department 1 week ago for the same symptoms, reports no worsening of his symptoms but also minimal improvement. He has not yet contacted Orthopedics to schedule follow-up appointment. Denies weakness of the right upper extremity, dropping of objects, back pain, chest pain, shortness of breath difficulty breathing. He is also requesting a work note. Related Data Previous Rx's Medication Instructions Recorded amoxicillin 875 mg-potassium 1 tab PO Q12H 10 Days #20 tab 08/20/21 clavulanate 125 mg tablet ibuprofen 600 mg tablet 600 mg PO Q8H PRN #20 tab 10/04/21 methocarbamol 750 mg tablet 750 mg PO TID PRN #20 tab 10/04/21 acetaminophen 500 mg tablet 500 mg PO Q6H PRN #20 tab 10/17/21 (Tylenol Extra Strength) cyclobenzaprine 5 mg tablet 5 mg PO Q8H PRN 5 Days #14 tab 10/17/21 lidocaine 5 % topical patch 1 patch TOPICAL DAILY PRN #30 ea 10/17/21 (Lidoderm) MDD remove after 12 hours naproxen 500 mg tablet 500 mg PO BID PRN 10 Days #20 tab 10/17/21 cyclobenzaprine 10 mg tablet 10 mg PO TID PRN #10 tab 10/23/21 Allergies Allergy/AdvReac Type Severity Reaction Status Date / Time codeine [CODEINE] Allergy Unknown AGITATION Verified 08/20/21 09:08 Review of Systems Review of Systems: Constitutional: No weight loss, fever, chills, weakness or fatigue. Skin: No rash or itching. Cardiovascular: No chest pain, chest pressure or chest discomfort. No palpitations or pedal edema. Respiratory: No shortness of breath, cough or sputum production. Gastrointestinal: No anorexia, nausea, vomiting or diarrhea. No abdominal pain or blood in stool. Genitourinary: No burning micturition. No urinary frequency or incontinence. Musculoskeletal: Right shoulder pain. No myalgias. No joint swelling. Neuro: No weakness. Positive numbness, positive paresthesia Yes all other systems are reviewed and are negative [facility] Past Medical History Attestation statement: The following information was validated with the patient. Source: old records reviewed Social History Social History Patient Tobacco Use Status: Never used Tobacco Advance Directives: No Advance Directives Information Provided: No service: No Current occupational status: unemployed Physical Exam Vital Signs: Vital Signs: Last Vital Signs Temp 97.6 F 10/23/21 10:50 Pulse 51 10/23/21 10:50 Resp 18 10/23/21 10:50 BP 111/60 10/23/21 10:50 Pulse Ox 99 10/23/21 10:50 BMI result Body Mass Index 36.3 Vital signs have been reviewed as normal and appeared to be correct. Blood pressure normal.? Heart rate normal.? Respiration rate normal. Temperature normal.? Oxygen saturation normal. Appearance: Alert.?Oriented to person, place and time. No acute distress.?Normal affect. Eyes: Pupils equal, round and reactive to light.? ENT: Pharynx normal.?? Neck: Normal inspection.? Neck supple.?? CVS: Heart sounds normal. Normal heart rate and rhythm.? Pulses normal.?? Respiratory: No respiratory distress.? Lung sounds clear to auscultation bilaterally?? Abdomen: Soft and non-tender. Skin: Skin warm and dry.? Normal skin color.? Extremities: No lower extremity edema.? No obvious deformity swelling, erythema, or rash to the right shoulder. Tenderness to palpation over AC joint. Neurovascular intact. Full AROM none with some decrease in external rotation due to pain. Pediatric Pathologist strength 5/5 bilaterally. Neuro: Moves all extremities spontaneously. Sensation intact bilaterally. No focal neuro deficits. Ambulates with normal steady gait. Course Course Course Narrative: Patient is a 36-year-old male with no significant past medical history being evaluated for right shoulder pain. One week ago patient had a normal right shoulder x-ray, and CT of the cervical spine with no visible acute fracture dislocation, lytic, or sclerotic process. Was advised to follow-up with Orthopedics, but has not yet contacted them to schedule his appointment. Overall he is well-appearing, symptoms have not worsened they are simply not improved. No weakness, urinary retention, saddle anesthesia, incontinence. He has been using Tylenol and naproxen, which were last used yesterday, cyclobenzaprine with some relief and has a couple of pills left. Lidoderm patch without significant improvement. Discussed the importance of follow-up with orthopedics as previously advised for further evaluation of possible pinched nerve, muscle strain, rotator cuff injury. Patient to be provided with additional course of cyclobenzaprine, shoulder exercises, naproxen and Tylenol as needed, reviewed reasons to return back to the emergency department. Discharge Plan Discharge Clinical Impression: Radiculopathy affecting upper extremity, Arthralgia Patient Disposition: Home, Self-Care Instructions: Arthralgia (ED) Prescriptions: New cyclobenzaprine 10 mg tablet 10 mg PO TID PRN (Reason: muscle spasm) Qty: 10 0RF No Action ibuprofen 600 mg tablet 600 mg PO Q8H PRN (Reason: pain) Qty: 20 0RF methocarbamol 750 mg tablet 750 mg PO TID PRN (Reason: muscle spasm) Qty: 20 0RF acetaminophen [Tylenol Extra Strength] 500 mg tablet 500 mg PO Q6H PRN (Reason: pain or fever) Qty: 20 0RF lidocaine [Lidoderm] 5 % adhesive patch,medicated 1 patch topical DAILY MDD remove after 12 hours PRN (Reason: pain) Qty: 30 0RF Rx Instructions: leave on most painful area for up to 12 hrs naproxen 500 mg tablet 500 mg PO BID PRN (Reason: pain) 10 Days Qty: 20 0RF cyclobenzaprine 5 mg tablet 5 mg PO Q8H PRN (Reason: pain (scale score 7-10)) 5 Days Qty: 14 0RF amoxicillin-pot clavulanate 875-125 mg tablet 1 tab PO Q12H 10 Days Qty: 20 0RF Referrals: Sonia Kwan PA-C [Physician [employer] Vice [employer]] - 1 week Stand Alone Forms: Work/School Release Interventions: ED Discharge Assessment Last Done: 10/23/21 11:56 Discharge Date/Time: 10/23/21 11:57
[2021-10-23] MEDS: Ketorolac Tromethamine 60 MG/2 ML VIAL IM (11:47)
== END 2021-10-23 11:57 | disposition home or self-care (01) ==
PROVIDERS: Emergency Provider Emergency Medicine
DX: M54.12 Radiculopathy, cervical region (principal); M25.511 Pain in right shoulder; Z79.899 Other long term (current) drug therapy
CPT/HCPCS: 96372; 99284; J1885

== ENCOUNTER 2022-02-19 08:33 | Outpatient (REF) | payer MEDICAID, SELFPAY ==
[2022-02-19 08:58] LABS: COVID-19 Test Positive (Negative); IDNOW Serial# 16C4AD1C
== END 2022-02-19 08:34 | disposition home or self-care (01) ==
LOC: HO.LAB 08:33
PROVIDERS: Visit Provider Internal Medicine
DX: Z20.822 Contact with and (suspected) exposure to COVID-19 (principal)
CPT/HCPCS: 87635; C9803

== ENCOUNTER 2022-02-25 10:23 | Outpatient (REF) | payer MEDICAID, SELFPAY ==
[2022-02-25 11:28] LABS: COVID-19 Test Negative (Negative)
== END 2022-02-25 10:24 | disposition home or self-care (01) ==
LOC: HO.LAB 10:23
PROVIDERS: Visit Provider Internal Medicine
DX: Z20.822 Contact with and (suspected) exposure to COVID-19 (principal)
CPT/HCPCS: 87635; C9803

== ENCOUNTER 2022-03-21 09:55 | Emergency (ER) | payer MEDICAID, SELFPAY ==
[2022-03-21 09:58] VITALS: BP 120/59; PULSE 57; RESP 18; TEMP 37.1; O2SAT 96; BMI 36.2
[2022-03-21 10:24] LABS: COVID-19 Test Negative (Negative); IDNOW Serial# 9DB6401D
--- NOTE | 2022-03-21 11:24 | ED_ITS ---
HPI - URI/Sore Throat General Chief Complaint: General Medical Stated Complaint: cold symptoms, Dizzy Time Seen by Provider: 03/21/22 11:17 Source: patient Mode of arrival: ambulatory Limitations: no limitations History of Present Illness MD elicited complaint: fever, cough, sore throat, rhinorrhea and nasal congestion Pertinent past history: other (Was positive for COVID on 02/20/2020 to then vaccinated 2 weeks after) Onset (ago): day(s) (Started yesterday) Consistency: constant Severity: mild Description of mucous: clear, watery and yellow Able to tolerate fluids by mouth: Yes Exacerbating factors: nothing Relieving factors: nothing Associated symptoms: fever, chills, myalgias, rhinorrhea, nasal congestion, sore throat, cough and ear pain Treatments prior to arrival: none Related Data Previous Rx's Medication Instructions Recorded amoxicillin 875 mg-potassium 1 tab PO Q12H 10 days #20 tabs 08/20/21 clavulanate 125 mg tablet ibuprofen 600 mg tablet 600 mg PO Q8H PRN pain #20 tabs 10/04/21 methocarbamol 750 mg tablet 750 mg PO TID PRN muscle spasm #20 10/04/21 tabs acetaminophen 500 mg tablet 500 mg PO Q6H PRN pain or fever 10/17/21 (Tylenol Extra Strength) #20 tabs cyclobenzaprine 5 mg tablet 5 mg PO Q8H PRN pain (scale score 10/17/21 7-10) 5 days #14 tabs lidocaine 5 % topical patch 1 patch topical DAILY PRN pain #30 10/17/21 (Lidoderm) ea naproxen 500 mg tablet 500 mg PO BID PRN pain 10 days #20 10/17/21 tabs cyclobenzaprine 10 mg tablet 10 mg PO TID PRN muscle spasm #10 10/23/21 tabs amoxicillin 875 mg-potassium 1 tab PO BID 7 days #14 tabs 03/21/22 clavulanate 125 mg tablet guaifenesin 200 mg/5 mL oral liquid 200 mg (5 mL) PO Q4H PRN 03/21/22 congestion #118 mL Allergies Allergy/AdvReac Type Severity Reaction Status Date / Time codeine [CODEINE] Allergy Unknown AGITATION Verified 08/20/21 09:08 Review of Systems Review of Systems: Constitutional : + fevers/chills/fatigue/malaise, No Weight loss, No Night Sweats ENT/Mouth : No Hearing loss, + Ear Pain, + Nasal Congestion, No Sinus Pain, No Hoarseness, + sore throat, + Rhinorrhea, No Swallowing Difficulty Eyes: No Eye Pain, No Swelling, No Redness, No Foreign Body, No Discharge, No Vision Changes Cardiovascular : No Chest Pain, No SOB, No Dyspnea on Exertion, No Orthopnea, No Edema, No Palpitations Respiratory : + Cough, No Sputum, No Wheezing, No Smoke Exposure, No Dyspnea Gastrointestinal : No Nausea, No Vomiting, + Diarrhea, No Constipation, No abdominal Pain, No Hematochezia, No Melena Genitourinary : no irregular bleeding, No Dysuria, No Urinary Frequency, No Hematuria, No Urinary Incontinence, No Urgency, No Flank Pain, No Urinary Flow Changes, No Hesitancy Musculoskeletal : No joint pain, + Myalgias, No Joint Swelling Skin : No Skin Lesions, No rash Neuro : No Weakness, No Numbness, No Paresthesias, No Loss of Consciousness, No Dizziness, No Headache Psych : No Anxiety/Panic, No Depression, No SI/HI/AH/VH, No Social Issues, Heme/Lymph: No Bruising, No Bleeding,No Lymphadenopathy Endocrine : No Polyuria, No Polydipsia, No Temperature Intolerance Yes all other systems are reviewed and are negative FORMERLY [facility], [facility] Past Medical History Attestation statement: The following information was validated with the patient. Source: old records reviewed and nursing notes reviewed Social History Social History Patient Tobacco Use Status: Never used Tobacco Advance Directives: No service: No Current occupational status: unemployed Physical Exam Vital Signs: Vital Signs: Last Vital Signs Temp 98.8 F 03/21/22 09:58 Pulse 57 03/21/22 09:58 Resp 18 03/21/22 09:58 BP 120/59 L 03/21/22 09:58 Pulse Ox 96 03/21/22 09:58 O2 Del Method 03/21/22 09:58 BMI result Body Mass Index 36.2 vital signs have been reviewed as normal and appeared to be correct. Blood pressure 120/59. Heart rate normal. Respiration rate normal. Temperature normal. Oxygen saturation normal. Appearance: Alert. Oriented X3. No acute distress. Head: Normal external exam. Normocephalic. Atraumatic. Eyes: PERRLA. EOMI. Conjunctiva and sclera normal. Eyelids normal. ENT: EAC normal. Bilateral tympanic membranes erythematous/bulging with loss of normal landmarks consistent with otitis media. Tympanic membranes are intact not perforated. Not consistent mastoiditis. Pharynx normal. Uvula midline. Moist mucous membranes. No lesions/ulcerations or masses noted on the tongue. Normal voice. No trismus noted. No drooling noted. No muffled voice noted. Neck: Normal inspection. Neck supple. FROM. No adenopathy. Thyroid Normal. No tracheal deviation noted. No crepitus is noted. No meningeal signs. No neck mass noted. CVS: Normal heart rate and rhythm. Heart sound normal. Pulses normal throughout. No murmurs/rales/gallops. Respiratory: No respiratory distress. Painless inspiration. Breath sounds normal. No wheezes/rales/rhonchi noted. Chest nontender. No crepitus is noted. No accessory muscle usage noted or decreased air movement noted. No signs of trauma. Abdomen: Soft and nontender. Nondistended. No guarding. No rigidity. Bowel sounds normal in all 4 quadrants. No distention noted. No organomegaly noted. Back: Full range of motion noted. Skin: Skin warm and dry. Normal skin color. Normal skin turgor. No rashes/lesions/lacerations noted. Extremities: Extremities exhibit normal range of motion and nontender. Neuro: Oriented X 3. No motor deficit. No sensory deficit. Reflexes normal. Normal steady gait. No focal neuro deficits noted. CN's II-XII intact bilaterally? Vascular: + radial pulses/+ 2 distal pedal pulses/+2 dorsalis pedis b/l. Normal cap refill. No cyanosis noted to upper extremity nails and lower extremity toes nails. Course Course Course Narrative: 36-year-old male who was positive for COVID on 02/19/2022 and was vaccinated for COVID 2 weeks after he was positive presenting to the ER with complaints of fevers up to 102.0, generalized fatigue/malaise, body aches, chills, nasal congestion/rhinorrhea, scratchy throat and left-sided ear pain with a intermittent cough for the past 2 days worse today. Denies recent travel or sick contacts that he is aware of. Also reports some diarrhea. Denies any other symptoms. Patient negative for COVID. No additional labs or imaging indicated at this time. Will DC home antibiotics for left otitis media and symptomatic treatment for URI and instructions to self isolate per CDC guideli brent for COVID and to retest for COVID and 3-5 days and symptoms persist. Patient understands agrees with this plan. MDM - URI/Sore Throat Medical Records Attestation: I reviewed the patient's medical records. Lab Data Attestation: I reviewed the patient's lab results. Labs: Lab Results 03/21/22 Range/Units 10:01 COVID-19 (MY[facility]) Negative (Negative) COVID-19 Clin Com See Note Discharge Plan Discharge Clinical Impression: Acute upper respiratory infection, Acute left otitis media Patient Disposition: Home, Self-Care Instructions: Ear Infection (ED), Upper Respiratory Infection (ED) Prescriptions: New amoxicillin-pot clavulanate 875-125 mg tablet 1 tab PO BID 7 Days Qty: 14 0RF guaifenesin 200 mg/5 mL liquid 200 mg PO Q4H PRN (Reason: congestion) Qty: 118 0RF No Action cyclobenzaprine 10 mg tablet 10 mg PO TID PRN (Reason: muscle spasm) Qty: 10 0RF ibuprofen 600 mg tablet 600 mg PO Q8H PRN (Reason: pain) Qty: 20 0RF methocarbamol 750 mg tablet 750 mg PO TID PRN (Reason: muscle spasm) Qty: 20 0RF acetaminophen [Tylenol Extra Strength] 500 mg tablet 500 mg PO Q6H PRN (Reason: pain or fever) Qty: 20 0RF lidocaine [Lidoderm] 5 % adhesive patch,medicated 1 patch topical DAILY MDD remove after 12 hours PRN (Reason: pain) Qty: 30 0RF Rx Instructions: leave on most painful area for up to 12 hrs naproxen 500 mg tablet 500 mg PO BID PRN (Reason: pain) 10 Days Qty: 20 0RF cyclobenzaprine 5 mg tablet 5 mg PO Q8H PRN (Reason: pain (scale score 7-10)) 5 Days Qty: 14 0RF amoxicillin-pot clavulanate 875-125 mg tablet 1 tab PO Q12H 10 Days Qty: 20 0RF Referrals: Physician,Unknown J [Primary Care Provider] - 3 days (your pcp) Stand Alone Forms: Work/School Release
== END 2022-03-21 11:38 | disposition home or self-care (01) ==
PROVIDERS: Emergency Provider Emergency Medicine
DX: J06.9 Acute upper respiratory infection, unspecified (principal); H66.92 Otitis media, unspecified, left ear; R50.9 Fever, unspecified; R05.9 Cough, unspecified; M79.10 Myalgia, unspecified site; Z20.822 Contact with and (suspected) exposure to COVID-19; Z79.899 Other long term (current) drug therapy
CPT/HCPCS: 87635; 99282; 99283

== ENCOUNTER 2022-10-28 09:58 | Emergency (ER) | payer MEDICAID, SELFPAY ==
--- NOTE | ~2022-10-28 | US_ITS ---
EXAMINATION: US SCROTUM CLINICAL INFORMATION: Left testicular pain. COMPARISON: None available. TECHNIQUE: A sonogram of the scrotum was performed assessing ortega-scale appearance and color Doppler flow. Spectral Doppler analysis of the arterial and venous flow were performed in the testes bilaterally. FINDINGS: RIGHT: Right testicle measures 4.1 x 1.9 x 2.4 cm, volume 10 mL. Microlithiasis. No focal testicular parenchymal lesions are visualized. Spectral Doppler analysis of the arterial and venous flow is normal in the right testis. Right epididymal head is normal in size. No right hydrocele or varicocele is seen. Right epididymal Doppler flow is normal. LEFT: Left testicle measures 4.1 x 1.8 x 2.7 cm, volume 10.4 mL. No focal testicular parenchymal lesions are visualized. Spectral Doppler analysis of the arterial and venous flow is normal in the left testis. Left epididymal head is normal in size. 5 x 4 x 4 mm hypoechoic area in the left epididymal head. Small left hydrocele. No varicocele is seen. Left epididymal Doppler flow is normal. There is a left appendix epididymis. US/US scrotum doppler IMPRESSION: 5 x 4 x 4 mm hypoechoic area in the left. Question epididymitis. Testicular microlithiasis. Urology consultation and follow-up scrotal ultrasound recommended. Small left hydrocele.
--- NOTE | ~2022-10-28 | CT_ITS ---
EXAMINATION: CT PELVIS WITH CONTRAST CLINICAL INFORMATION: Left inguinal hernia. COMPARISON: CT abdomen pelvis 03/27/2021 TECHNIQUE: Helical scanning was performed with submillimeter collimation through the pelvis with the use of oral contrast and during bolus intravenous injection of 85 mL of Omnipaque 350 intravenous contrast. Sagittal and coronal multiplanar 2-D reconstructions were obtained. This CT examination was performed using dose optimization techniques as appropriate, variously including the following: *Automated exposure control *Adjustment of mA and/or kV according to patient size (this includes techniques or standardized protocols for targeted exams where dose is matched to indication/reason for exam; i.e. extremities or head) *Use of iterative reconstruction technique DLP: 499 mGy-cm FINDINGS: There is no hernia of the abdominal wall including the inguinal region bilaterally. No acute change of the bowel. No bowel obstruction. No bowel wall thickening or edema. Moderate volume of stool in the rectum sigmoid. The appendix is visualized and is normal. No pelvic mass. No significant lymphadenopathy. No inflammatory change. No fluid or free air. No osseous abnormality. Hip joints and pelvis are normal. CT/CT pelvis w IV con IMPRESSION: Unremarkable examination.
--- NOTE | ~2022-10-28 | US_ITS ---
EXAMINATION: US SCROTUM CLINICAL INFORMATION: Left testicular pain. COMPARISON: None available. TECHNIQUE: A sonogram of the scrotum was performed assessing ortega-scale appearance and color Doppler flow. Spectral Doppler analysis of the arterial and venous flow were performed in the testes bilaterally. FINDINGS: RIGHT: Right testicle measures 4.1 x 1.9 x 2.4 cm, volume 10 mL. Microlithiasis. No focal testicular parenchymal lesions are visualized. Spectral Doppler analysis of the arterial and venous flow is normal in the right testis. Right epididymal head is normal in size. No right hydrocele or varicocele is seen. Right epididymal Doppler flow is normal. LEFT: Left testicle measures 4.1 x 1.8 x 2.7 cm, volume 10.4 mL. No focal testicular parenchymal lesions are visualized. Spectral Doppler analysis of the arterial and venous flow is normal in the left testis. Left epididymal head is normal in size. 5 x 4 x 4 mm hypoechoic area in the left epididymal head. Small left hydrocele. No varicocele is seen. Left epididymal Doppler flow is normal. There is a left appendix epididymis. US/US scrotum IMPRESSION: 5 x 4 x 4 mm hypoechoic area in the left. Question epididymitis. Testicular microlithiasis. Urology consultation and follow-up scrotal ultrasound recommended. Small left hydrocele.
[2022-10-28 10:03] VITALS: BP 106/56; PULSE 50; RESP 18; TEMP 36.4; O2SAT 100; BMI 36.9
[2022-10-28 10:19] LABS: Appearance Urine Clear; Color Urine Yellow; Glucose Urine UA Negative (Negative); Leukocyte Esterase Urine Trace (Negative); Nitrite Urine Negative (Negative); Specific Gravity - Urine >= 1.030 (1.005-1.025); UMIC TRIGGER UACC YES; Urine Blood Negative (Negative); Urine Ketones Negative (Negative); Urine Protein Trace mg/dL (Neg-Trace)
[2022-10-28 10:24] LABS: Bacteria Urine None Seen (None Seen); Hyaline Casts Urine 0-2 /LPF (0-2); RBC Urine 0-2 /HPF (0-2); Squamous Epithelial Cell Urine 0-2 /HPF (0-2); WBC Urine 0-5 /HPF (0-5)
--- NOTE | 2022-10-28 12:50 | ED_ITS ---
HPI - General Adult General Chief complaint: General Medical Stated complaint: l testicle pain Time Seen by Provider: 10/28/22 12:29 Source: patient Mode of arrival: ambulatory Limitations: no limitations History of Present Illness HPI narrative: 37 yo male healthy here with sudden left sided testicle pain which began after he was lifting a bread box today. Patient reports he vomited after this occurred. No abdominal pain, flank pain, diarrhea, constipation, urinary symptoms, penile discharge. No new sexual partners or concern for STI Related Data Previous Rx's Medication Instructions Recorded amoxicillin 875 mg-potassium 1 tab PO Q12H 10 days #20 tabs 08/20/21 clavulanate 125 mg tablet ibuprofen 600 mg tablet 600 mg PO Q8H PRN pain #20 tabs 10/04/21 methocarbamol 750 mg tablet 750 mg PO TID PRN muscle spasm #20 10/04/21 tabs acetaminophen 500 mg tablet 500 mg PO Q6H PRN pain or fever 10/17/21 (Tylenol Extra Strength) #20 tabs cyclobenzaprine 5 mg tablet 5 mg PO Q8H PRN pain (scale score 10/17/21 7-10) 5 days #14 tabs lidocaine 5 % topical patch 1 patch topical DAILY PRN pain #30 10/17/21 (Lidoderm) ea naproxen 500 mg tablet 500 mg PO BID PRN pain 10 days #20 10/17/21 tabs cyclobenzaprine 10 mg tablet 10 mg PO TID PRN muscle spasm #10 10/23/21 tabs amoxicillin 875 mg-potassium 1 tab PO BID 7 days #14 tabs 03/21/22 clavulanate 125 mg tablet guaifenesin 200 mg/5 mL oral liquid 200 mg (5 mL) PO Q4H PRN 03/21/22 congestion #118 mL doxycycline monohydrate 100 mg 100 mg PO BID #14 caps 10/28/22 capsule ibuprofen 600 mg tablet 600 mg PO Q8H PRN fever or pain 10/28/22 #30 tabs Allergies Allergy/AdvReac Type Severity Reaction Status Date / Time codeine [CODEINE] Allergy Unknown AGITATION Verified 10/28/22 10:07 Review of Systems Review of Systems: Yes all other systems are reviewed and are negative Constitutional: Constitutional: Reports no additional constitutional complaints, Denies body ache(s), Denies chills, Denies fever(s), Denies headache(s) and Denies weakness Eyes: Eyes: Reports no additional eye complaints and Denies change in vision ENT: Reports system reviewed and no additional complaints, except as docume nted, Denies dizziness, Denies headache(s), Denies nasal congestion, Denies nasal discharge and Denies neck pain Cardiovascular: Cardiovascular: Reports no additional cardiovascular complaints, Denies chest pain, Denies leg edema and Denies dyspnea Respiratory: Respiratory: Reports no additional respiratory complaints, Denies cough and Denies dyspnea Gastrointestinal: Gastrointestinal: Reports no additional gastrointestinal complaints, Denies abdominal pain, Denies diarrhea, Reports nausea and Reports vomiting Genitourinary: Genitourinary: Reports testicular pain and Denies urinary incontinence Musculoskeletal: Musculoskeletal: Reports no additional musculoskeletal complaints, Denies back pain, Denies arthralgias, Denies joint swelling, Denies neck pain, Denies numbness and Denies tingling Integumentary/Breasts: Skin/Breast: Reports system reviewed and no additional complaints, except as docu and Denies rash Neurologic: Reports system reviewed and no additional complaints, except as documented, Denies dizziness, Denies headache(s), Denies numbness, Denies tingling and Denies weakness PMFSH Past Medical History Attestation statement: The following information was validated with the patient. Source: old records reviewed and nursing notes reviewed Social History Social History Patient Tobacco Use Status: Never used Tobacco Advance Directives: No Advance Directives Information Provided: Yes service: No Current occupational status: unemployed Physical Exam ED Vital Signs: Vital Signs - 24 hr 10/28/22 10:03 10/28/22 14:46 10/28/22 16:24 Temperature 97.5 F Pulse Rate 50 47 L 47 L Respiratory Rate 18 18 18 Blood Pressure 106/56 L 104/62 99/54 L Pulse Oximetry 100 99 99 Oxygen Delivery Method Room Air Room Air Room Air BMI result Body Mass Index 36.9 Const General: cooperative, healthy appearing, comfortable and no acute distress Orientation/consciousness: patient oriented x3 Limitations: no limitations HENMT Head: Yes normal to inspection Ears: hearing grossly normal bilaterally Eyes General: appearance normal, both eyes and all related structures Neck Neck: Yes normal visual inspection Chest Chest palpation & inspection: normal inspection of the chest Resp Effort & Inspection: normal respiratory effort Cardio Peripheral pulses: Peripheral pulses 2+ throughout GI Inspection: Yes normal to inspection Palpation (GI): Soft to palpation and nontender 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 Bimanual renal exam normal bilaterally and Yes no CVA tenderness Penis: normal penis and circumcised Meatus: meatus normal Scrotum: scrotum normal Testes: Testes normal, no testicular swelling and no testicular tenderness Back/Spine/Pelvis Back: no CVA tenderness Thoracic/Lumbar Spine: thoracic and lumbar spine normal to inspection Skin General skin exam: no rashes or lesions noted Neuro General: patient oriented x3 and moves all extremities Cognition (Neuro): normal cognition Gait exam (Neuro): Normal gait present Course Course Course Narrative: 1356-Ordered pelvis CT to eval for hernia Reevaluation(s) Reevaluation #1: 1700-CT scan is negative. Patient will be treated for epididymitis with ceftriaxone IM and sent home with doxycycline and NSAIDs with urology follow-up. Reviewed worrisome signs and symptoms of when to return to the emergency room. Comfortable plan for discharge home. Medications Administered Discontinued Medications Generic Name Dose Route Start Last Admin Trade Name Freq PRN Reason Stop Dose Admin Ceftriaxone Sodium 500 mg/ 0 mg 10/28/22 16:59 10/28/22 17:34 Lidocaine HCl 1 ml IM 10/28/22 17:00 1 kit ONCE ONE Administration Iohexol 100 ml 10/28/22 15:56 10/28/22 15:57 Iohexol 350 Mg/Ml 100 Ml Infus..Btl IV 10/28/22 15:57 85 ml ONCE ONE Administration Medical Decision Making Medical Decision Making [facility] Narrative: 37-year-old male here with sudden onset left testicle pain after lifting something heavy today with 1 episode of vomiting prior to arrival. Patient had testicular ultrasound and Dopplers ordered from triage Will order UA, CT NG Differential Diagnosis Differential Diagnoses: The differential diagnosis associated with the presentation includes Testicular torsion, inguinal hernia, groin strain Likely epididymitis, STI, renal colic, pyelonephritis Consult Healthcare Provider Management of the patient was discussed with: [employer] 1345-Spoke to leasing consultant urology Dr Mejia in regards to US report (recommended pelvis CT to eval for hernia) Lab Data [facility] Lab Attestation statement: I reviewed the patient's lab results. 10/28/22 14:23 10/28/22 14:23 Labs: Lab Results 10/28/22 10/28/22 10/28/22 Range/Units 10:11 14:23 14:23 WBC 7.7 (4.8-10.8) X10*3/uL RBC 4.55 L (4.60-5.80) X10*6/uL Hgb 13.8 L (14.0-18.0) g/dl Hct 39.4 L (42.0-52.0) % MCV 86.6 (80.0-98.0) fL MCH 30.3 (27.0-33.0) pg MCHC 35.0 (31.0-36.0) g/dl RDW 12.2 (11.0-16.0) % Plt Count 180 (160-400) X10*3/uL MPV 11.4 (9.4-12.4) fL Immature Gran % (Auto) 0.4 (0.0-0.4) % Neut % (Auto) 63.8 (45-73) % Lymph % (Auto) 27.0 (20-40) % [place] % (Auto) 6.5 (2-11) % Eos % (Auto) 2.0 (0-4) % Baso % (Auto) 0.3 (0-2) % Lymph # (Auto) 2.1 (1.2-4.9) X10*3/uL [place] # (Auto) 0.5 (0.1-1.2) X10*3/uL Eos # (Auto) 0.2 (0.0-0.4) X10*3/uL Baso # (Auto) 0.0 (0.0-0.2) X10*3/uL Abs Immat Gran (auto) 0.03 (0.00-0.03) X10*3/uL Absolute Neuts (auto) 4.9 (2.0-8.3) x10*3/uL Absolute Nucleated RBC 0.000 (0.0-0.012) X10*3/uL Nucleated RBC % (auto) 0.0 (0.0-0.2) /100WBC Sodium 141 (135-145) mmol/L Potassium 3.8 (3.3-5.1) mmol/L Chloride 108 (96-108) mmol/L Carbon Dioxide 28 (22-29) mmol/L Anion Gap 9 L (12-20) BUN 15 (9-16) mg/dL Creatinine 0.83 (0.5-1.4) mg/dL Estim Creat Clear Calc 160.7 Estimated GFR > 60 Random Glucose 107 (60-115) mg/dL Calcium 9.0 (8.4-10.2) mg/dL Urine Color Yellow Urine Appearance Clear Urine pH 6.0 (5.0-9.0) Ur Specific [place] >= 1.030 H (1.005-1.025) Urine Protein Trace (Neg-Trace) mg/dL Urine Glucose (UA) Negative (Negative) mg/dL Urine Ketones Negative (Negative) mg/dL Urine Blood Negative (Negative) Urine Nitrite Negative (Negative) Ur Leukocyte Esterase Trace H (Negative) Urine RBC 0-2 (0-2) /HPF Urine WBC 0-5 (0-5) /HPF Ur Squamous Epith Cells 0-2 (0-2) /HPF Urine Bacteria None Seen (None Seen) Hyaline Casts 0-2 (0-2) /LPF Independent Interpretation I performed an independent interpretation of an: Ultrasound and CT Scan Interpretation: I independently reviewed the ultrasound and CT scan agree with radiologist's report Radiology Impression Discussion of test interpretation with radiology: I have reviewed the radiologist's reading. Radiologist Impression: [address] [address] Ultrasound Report Signed Patient: Jf Rascon MR#: [id number] : 1985 Acct:[id number] Age/Sex: 37 / M ADM Date: 10/28/22 Loc: .ED Attending Dr: Ordering Physician: Annelise Flores Date of Service: 10/28/22 Procedure(s): US scrotum Accession Number(s): [id number] cc: Annelise Flores~ EXAMINATION: US SCROTUM CLINICAL INFORMATION: Left testicular pain. COMPARISON: None available. TECHNIQUE: A sonogram of the scrotum was performed assessing ortega-scale appearance and color Doppler flow. Spectral Doppler analysis of the arterial and venous flow were performed in the testes bilaterally. FINDINGS: RIGHT: Right testicle measures 4.1 x 1.9 x 2.4 cm, volume 10 mL. Microlithiasis. No focal testicular parenchymal lesions are visualized. Spectral Doppler analysis of the arterial and venous flow is normal in the right testis. Right epididymal head is normal in size. No right hydrocele or varicocele is seen. Right epididymal Doppler flow is normal. LEFT: Left testicle measures 4.1 x 1.8 x 2.7 cm, volume 10.4 mL. No focal testicular parenchymal lesions are visualized. Spectral Doppler analysis of the arterial and venous flow is normal in the left testis. Left epididymal head is normal in size. 5 x 4 x 4 mm hypoechoic area in the left epididymal head. Small left hydrocele. No varicocele is seen. Left epididymal Doppler flow is normal. There is a left appendix epididymis. US/US scrotum IMPRESSION: 5 x 4 x 4 mm hypoechoic area in the left. Question epididymitis. Testicular microlithiasis. Urology consultation and follow-up scrotal ultrasound recommended. Small left hydrocele. [place] [address] CT Scan Report Signed Patient: Jf Rascon MR#: [id number] : 1985 Acct:[id number] Age/Sex: 37 / M ADM Date: 10/28/22 Loc: .ED Attending Dr: Ordering Physician: Yvette Bullard NP Date of Service: 10/28/22 Procedure(s): CT pelvis w IV con Accession Number(s): [id number] cc: Yvette Bullard NP~ EXAMINATION: CT PELVIS WITH CONTRAST CLINICAL INFORMATION: Left inguinal hernia.? COMPARISON: CT abdomen pelvis 03/27/2021? ? TECHNIQUE: Helical scanning was performed with submillimeter collimation through the pelvis with the use of oral contrast and during bolus intravenous injection of 85 mL of Omnipaque 350 intravenous contrast. Sagittal and coronal multiplanar 2-D reconstructions were obtained. This CT examination was performed using dose optimization techniques as appropriate, variously including the following: *Automated exposure control *Adjustment of mA and/or kV according to patient size (this includes techniques or standardized protocols for targeted exams where dose is matched to indication/reason for exam; i.e. extremities or head) *Use of iterative reconstruction technique DLP: 499 mGy-cm FINDINGS: There is no hernia of the abdominal wall including the inguinal region bilaterally. No acute change of the bowel. No bowel obstruction. No bowel wall thickening or edema. Moderate volume of stool in the rectum sigmoid. The appendix is visualized and is normal. No pelvic mass. No significant lymphadenopathy. No inflammatory change. No fluid or free air. No osseous abnormality. Hip joints and pelvis are normal. CT/CT pelvis w IV con IMPRESSION: Unremarkable examination.? Discharge Plan Discharge Clinical Impression: Acute epididymitis Patient Disposition: Home, Self-Care Instructions: Epididymitis (ED), Testicle Pain (ED) Additional Instructions: Elevate the scrotum Follow-up with urology. Your ct scan was normal. Your ultrasound shows an area on the left side that may be an infection or a hernia. please follow-up with urology for follow-up ultrasound Prescriptions: New doxycycline monohydrate 100 mg capsule 100 mg PO BID Qty: 14 0RF ibuprofen 600 mg tablet 600 mg PO Q8H PRN (Reason: fever or pain) Qty: 30 0RF No Action cyclobenzaprine 10 mg tablet 10 mg PO TID PRN (Reason: muscle spasm) Qty: 10 0RF ibuprofen 600 mg tablet 600 mg PO Q8H PRN (Reason: pain) Qty: 20 0RF methocarbamol 750 mg tablet 750 mg PO TID PRN (Reason: muscle spasm) Qty: 20 0RF acetaminophen [Tylenol Extra Strength] 500 mg tablet 500 mg PO Q6H PRN (Reason: pain or fever) Qty: 20 0RF lidocaine [Lidoderm] 5 % adhesive patch,medicated 1 patch topical DAILY MDD remove after 12 hours PRN (Reason: pain) Qty: 30 0RF Rx Instructions: leave on most painful area for up to 12 hrs naproxen 500 mg tablet 500 mg PO BID PRN (Reason: pain) 10 Days Qty: 20 0RF cyclobenzaprine 5 mg tablet 5 mg PO Q8H PRN (Reason: pain (scale score 7-10)) 5 Days Qty: 14 0RF amoxicillin-pot clavulanate 875-125 mg tablet 1 tab PO BID 7 Days Qty: 14 0RF guaifenesin 200 mg/5 mL liquid 200 mg PO Q4H PRN (Reason: congestion) Qty: 118 0RF amoxicillin-pot clavulanate 875-125 mg tablet 1 tab PO Q12H 10 Days Qty: 20 0RF Referrals: Leni Mejia MD [Physician] - 1 week Stand Alone Forms: Work/School Release Interventions: ED Discharge Assessment Last Done: 10/28/22 17:42 Discharge Date/Time: 10/28/22 17:43
[2022-10-28 14:31] LABS: MANUAL DIFF FLAG NO
[2022-10-28 14:37] LABS: Basophils Percent Auto 0.3 % (0-2); Eosinophils Absolute Auto 0.2 X10*3/uL (0.0-0.4); Hematocrit 39.4 % (42.0-52.0); Hemoglobin 13.8 g/dl (14.0-18.0); Imm Gran Abs Auto 0.03 X10*3/uL (0.00-0.03); Imm Gran Pct Auto 0.4 % (0.0-0.4); Lymphocytes Absolute Auto 2.1 X10*3/uL (1.2-4.9); Mean Corpuscular Hemoglobin 30.3 pg (27.0-33.0); Mean Corpuscular Volume 86.6 fL (80.0-98.0); Mean Platelet Volume 11.4 fL (9.4-12.4); Monocytes Absolute Auto 0.5 X10*3/uL (0.1-1.2); Monocytes Percent Auto 6.5 % (2-11); Neutrophils Absolute Auto 4.9 x10*3/uL (2.0-8.3); Neutrophils Percent Auto 63.8 % (45-73); Platelet Count 180 X10*3/uL (160-400); Red Blood Count 4.55 X10*6/uL (4.60-5.80); Red Cell Distribution Width 12.2 % (11.0-16.0); White Blood Count 7.7 X10*3/uL (4.8-10.8)
[2022-10-28 14:46] VITALS: BP 104/62; PULSE 47; RESP 18; O2SAT 99
[2022-10-28 14:47] LABS: Anion Gap 9 (12-20); Blood Urea Nitrogen 15 mg/dL (9-16); Carbon Dioxide 28 mmol/L (22-29); Chloride 108 mmol/L (96-108); Creatinine Clr Calc Pharmacy 160.7; Estimated Glomerular Filt Rate > 60; Glucose Random 107 mg/dL (60-115); Potassium 3.8 mmol/L (3.3-5.1); Sodium 141 mmol/L (135-145)
[2022-10-28] MEDS: iohexoL 350 MG/ML 100 ML INFUS..BTL IV (15:57)
[2022-10-28 16:24] VITALS: BP 99/54; PULSE 47; RESP 18; O2SAT 99
[2022-10-28] MEDS: cefTRIAXone sodium 500 MG, Lidocaine HCl 1 % MPF 1 ML IM (17:34)
[2022-10-28 18:10] LABS: CT PCR NOT DETECTED (Not Detect.); NG PCR NOT DETECTED (Not Detect.)
== END 2022-10-28 17:43 | disposition home or self-care (01) ==
PROVIDERS: Nurse Practitioner Family; Emergency Provider Emergency Medicine; PCP Internal Medicine
DX: N45.1 Epididymitis (principal); N50.812 Left testicular pain
CPT/HCPCS: 0353U; 36415; 72193; 76870; 80048; 81001; 85025; 93975; 96372; 99284; J0696; Q9967

== ENCOUNTER 2022-12-28 14:14 | Emergency (ER) | payer MEDICAID, SELFPAY ==
--- NOTE | ~2022-12-28 | XR_ITS ---
EXAMINATION: XR HAND, RIGHT CLINICAL INFORMATION: Locked thumb COMPARISON: None available. TECHNIQUE: PA, lateral, and oblique views of the right hand. FINDINGS: No acute fracture or dislocation is seen. There is a question of some subluxation at the first MCP joint. There is some bony irregularity involving the distal aspect of the first metacarpal along the radial aspect degenerative in nature. Could represent old ligament is injury. Some mild irregularity also seen along the ulnar aspect There is also a flared appearance to the base of the fifth metacarpal. This could indicate an old. Correlation recommended clinically XR/XR hand RT 2V IMPRESSION: There is no acute finding in the hand. Findings in the first MCP joint as described and mild subluxation here would need to be considered and some bony changes involving the distal aspect first metacarpal could be degenerative or posttraumatic. Correlation recommended clinically. If further evaluation is warranted recommend MRI.
[2022-12-28 14:24] VITALS: BP 106/61; PULSE 76; RESP 16; TEMP 36.3; O2SAT 98; BMI 37.0
--- NOTE | 2022-12-28 14:25 | ED_ITS ---
HPI - Extremity Injury (Upper) General Chief Complaint: Extremity Injury, Upper Stated Complaint: r thumb inj Related Data Previous Rx's Medication Instructions Recorded amoxicillin 875 mg-potassium 1 tab PO Q12H 10 days #20 tabs 08/20/21 clavulanate 125 mg tablet ibuprofen 600 mg tablet 600 mg PO Q8H PRN pain #20 tabs 10/04/21 methocarbamol 750 mg tablet 750 mg PO TID PRN muscle spasm #20 10/04/21 tabs acetaminophen 500 mg tablet 500 mg PO Q6H PRN pain or fever 10/17/21 (Tylenol Extra Strength) #20 tabs cyclobenzaprine 5 mg tablet 5 mg PO Q8H PRN pain (scale score 10/17/21 7-10) 5 days #14 tabs lidocaine 5 % topical patch 1 patch topical DAILY PRN pain #30 10/17/21 (Lidoderm) ea naproxen 500 mg tablet 500 mg PO BID PRN pain 10 days #20 10/17/21 tabs cyclobenzaprine 10 mg tablet 10 mg PO TID PRN muscle spasm #10 10/23/21 tabs amoxicillin 875 mg-potassium 1 tab PO BID 7 days #14 tabs 03/21/22 clavulanate 125 mg tablet guaifenesin 200 mg/5 mL oral liquid 200 mg (5 mL) PO Q4H PRN 03/21/22 congestion #118 mL doxycycline monohydrate 100 mg 100 mg PO BID #14 caps 10/28/22 capsule ibuprofen 600 mg tablet 600 mg PO Q8H PRN fever or pain 10/28/22 #30 tabs ibuprofen 600 mg tablet 600 mg PO Q6H PRN pain #45 tabs 12/28/22 Allergies Allergy/AdvReac Type Severity Reaction Status Date / Time codeine [CODEINE] Allergy Unknown AGITATION Verified 12/28/22 14:24 [facility] Social History Social History Patient Tobacco Use Status: Never used Tobacco service: No Current occupational status: unemployed Physical Exam Vital Signs: Vital Signs: Last Vital Signs Temp 97.3 F 12/28/22 14:24 Pulse 76 12/28/22 14:24 Resp 16 12/28/22 14:24 BP 106/61 12/28/22 14:24 Pulse Ox 98 12/28/22 14:24 O2 Del Method Room Air 12/28/22 14:24 BMI result Body Mass Index 37.0 Course Course Course Narrative: This is an RME: Additional HPI, ROS, PE not included below will be deferred to primary provider. Patient is a 37-year-old male presents emergency department for evaluation of bright thumb pain, and decreased AROM. States he is unable to flex the digit. Denies any known precipitating injury. 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 No erythema, warmth, rash. Discharge Plan Discharge Clinical Impression: Hand pain Patient Disposition: Elopement Prescriptions: No Action cyclobenzaprine 10 mg tablet 10 mg PO TID PRN (Reason: muscle spasm) Qty: 10 0RF ibuprofen 600 mg tablet 600 mg PO Q8H PRN (Reason: pain) Qty: 20 0RF methocarbamol 750 mg tablet 750 mg PO TID PRN (Reason: muscle spasm) Qty: 20 0RF acetaminophen [Tylenol Extra Strength] 500 mg tablet 500 mg PO Q6H PRN (Reason: pain or fever) Qty: 20 0RF lidocaine [Lidoderm] 5 % adhesive patch,medicated 1 patch topical DAILY MDD remove after 12 hours PRN (Reason: pain) Qty: 30 0RF Rx Instructions: leave on most painful area for up to 12 hrs naproxen 500 mg tablet 500 mg PO BID PRN (Reason: pain) 10 Days Qty: 20 0RF cyclobenzaprine 5 mg tablet 5 mg PO Q8H PRN (Reason: pain (scale score 7-10)) 5 Days Qty: 14 0RF amoxicillin-pot clavulanate 875-125 mg tablet 1 tab PO BID 7 Days Qty: 14 0RF guaifenesin 200 mg/5 mL liquid 200 mg PO Q4H PRN (Reason: congestion) Qty: 118 0RF doxycycline monohydrate 100 mg capsule 100 mg PO BID Qty: 14 0RF ibuprofen 600 mg tablet 600 mg PO Q8H PRN (Reason: fever or pain) Qty: 30 0RF ibuprofen 600 mg tablet 600 mg PO Q6H PRN (Reason: pain) Qty: 45 0RF amoxicillin-pot clavulanate 875-125 mg tablet 1 tab PO Q12H 10 Days Qty: 20 0RF Interventions: ED Discharge Assessment Last Done: 12/28/22 17:59 Discharge Date/Time: 12/28/22 17:59
== END 2022-12-28 17:59 | disposition left against medical advice (07) ==
PROVIDERS: Emergency Provider Emergency Medicine; PCP Internal Medicine
DX: M79.641 Pain in right hand (principal)
CPT/HCPCS: 73120; 99282; 99283

== ENCOUNTER 2022-12-28 20:14 | Emergency (ER) | payer MEDICAID, SELFPAY ==
[2022-12-28 20:31] VITALS: BP 127/73; PULSE 76; RESP 18; TEMP 37.1; O2SAT 99; BMI 37.0
--- NOTE | 2022-12-28 22:17 | ED.EXTPRO ---
HPI - Extremity Problem General Chief complaint: Extremity Injury, Upper Stated complaint: right hand inj Time Seen by Provider: 12/28/22 22:16 Source: patient and RN notes reviewed Mode of arrival: ambulatory Limitations: no limitations History of Present Illness HPI Narrative: This is a 37-year-old male presenting to the emergency department for evaluation of right thumb pain since today. 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 Patient reports that while he was at work he realized that his right thumb was causing him pain and locked up. Patient denies history of similar symptoms in the past. Patient denies any fevers, chills, numbness or tingling. Reports he is able to move his thumb however reports that this causes him pain. Denies taking any medications at home to treat his current symptoms. He is right-handed. No other complaints or concerns at this time. MD Complaint: extremity pain Onset (ago): hour(s) Pain Consistency: constant Location: right and upper extremity Quality: aching Radiation: none Relieving factors: nothing Exacerbating factors: range of motion Associated symptoms: denies other symptoms Related Data Previous Rx's Medication Instructions Recorded amoxicillin 875 mg-potassium 1 tab PO Q12H 10 days #20 tabs 08/20/21 clavulanate 125 mg tablet ibuprofen 600 mg tablet 600 mg PO Q8H PRN pain #20 tabs 10/04/21 methocarbamol 750 mg tablet 750 mg PO TID PRN muscle spasm #20 10/04/21 tabs acetaminophen 500 mg tablet 500 mg PO Q6H PRN pain or fever 10/17/21 (Tylenol Extra Strength) #20 tabs cyclobenzaprine 5 mg tablet 5 mg PO Q8H PRN pain (scale score 10/17/21 7-10) 5 days #14 tabs lidocaine 5 % topical patch 1 patch topical DAILY PRN pain #30 10/17/21 (Lidoderm) ea naproxen 500 mg tablet 500 mg PO BID PRN pain 10 days #20 10/17/21 tabs cyclobenzaprine 10 mg tablet 10 mg PO TID PRN muscle spasm #10 10/23/21 tabs amoxicillin 875 mg-potassium 1 tab PO BID 7 days #14 tabs 03/21/22 clavulanate 125 mg tablet guaifenesin 200 mg/5 mL oral liquid 200 mg (5 mL) PO Q4H PRN 03/21/22 congestion #118 mL doxycycline monohydrate 100 mg 100 mg PO BID #14 caps 10/28/22 capsule ibuprofen 600 mg tablet 600 mg PO Q8H PRN fever or pain 10/28/22 #30 tabs ibuprofen 600 mg tablet 600 mg PO Q6H PRN pain #45 tabs 12/28/22 Allergies Allergy/AdvReac Type Severity Reaction Status Date / Time codeine [CODEINE] Allergy Unknown AGITATION Verified 12/28/22 14:24 Review of Systems Review of Systems: Constitutional: No Weight loss, No Fever, No Chills, No Night Sweats, No Fatigue, No Malaise ENT/Mouth: No Hearing loss, No Ear Pain, No Nasal Congestion, No Sinus Pain, No Hoarseness, No sore throat, No Rhinorrhea, No Swallowing Difficulty Eyes: No Eye Pain, No Swelling, No Redness, No Foreign Body, No Discharge, No Vision Changes Cardiovascular: No Chest Pain, No SOB, No Dyspnea on Exertion, No Orthopnea, No Edema, No Palpitations Respiratory: No Cough, No Sputum, No Wheezing, No Smoke Exposure, No Dyspnea Gastrointestinal: No Nausea, No Vomiting, No Diarrhea, No Constipation, No Abdominal pain, No Hematochezia, No Melena Genitourinary: No irregular bleeding, No Dysuria, No Urinary Frequency, No Hematuria, No Urinary Incontinence/retention, No Urgency, No Flank Pain, No Urinary Flow Changes, No Hesitancy Musculoskeletal: + joint pain, No Myalgias, No Joint Swelling Skin: No Skin Lesions, No rash Neuro: No Weakness, No Numbness, No Paresthesias, No Loss of Consciousness, No Dizziness, No Headache Psych: No Anxiety/Panic, No Depression, No SI/HI/AH/VH, No Social Issues, Heme/Lymph: No Bruising, No Bleeding,No Lymphadenopathy Endocrine: No Polyuria, No Polydipsia, No Temperature Intolerance [facility] Past Medical History Attestation statement: The following information was validated with the patient. Social History Social History Patient Tobacco Use Status: Never used Tobacco Advance Directives: No Advance Directives Information Provided: No service: No Current occupational status: unemployed Physical Exam Vital Signs: Vital Signs: Last Vital Signs Temp 98.7 F 12/28/22 20:31 Pulse 76 12/28/22 20:31 Resp 18 12/28/22 20:31 BP 127/73 12/28/22 20:31 Pulse Ox 99 12/28/22 20:31 O2 Del Method Room Air 12/28/22 20:31 BMI result Body Mass Index 37.0 General: Awake, alert, and oriented X3. No acute distress. HEENT: Normal inspection CVS: Normal heart rate and rhythm. Pulses normal. Respiratory: No respiratory distress Skin: Warm, dry, no rashes noted to exposed skin. Normal skin color. Normal skin turgor. Extremities: Right thumb with mild tenderness to palpation along the thernar eminence. Able to flex and extend at the PIP of the first digit, with pain elicited. No overlying skin changes, erythema, edema or open wounds. Neuro: Oriented X 3. No motor deficit. No sensory deficit. Medications Administered Discontinued Medications Generic Name Dose Route Start Last Admin Trade Name Freq PRN Reason Stop Dose Admin Ketorolac Tromethamine 30 mg 12/28/22 22:33 12/28/22 22:37 Ketorolac Tromethamine 30 Mg/Ml Vial IM 12/28/22 22:34 30 mg ONCE ONE Administration Medical Decision Making Medical Decision Making MDM Narrative: 37 y/o M, with no known medical history, presenting to the emergency department with complaints of right thumb pain since today. No known trauma or injury however noticed pain locking up sensation after lifting and carrying baskets. X-rays revealing bony changes involving the distal aspect of the 1st metacarpal which could be degenerative or posttraumatic. Patient is able to flex and extend at the intrapharngeal joint of the first digit. No overlying skin changes. Discussed these results with patient and symptoms may be attributed to a ligamentous injury in the right thumb for degenerative changes. Given patient's pain I think it is reasonable to follow-up with orthopedics especially as this is involving his right hand. Vital signs stable. Educated the importance of returning with any new or worsening symptoms. Differential Diagnosis Differential Diagnoses: The differential diagnosis associated with the presentation includes Right thumb osteoarthritis, septic arthritis, cellulitis, fracture, ligamentous injury Radiology Impression Discussion of test interpretation with radiology: I have reviewed the radiologist's reading. Radiologist Impression: EXAMINATION: XR HAND, RIGHT CLINICAL INFORMATION: Locked thumb? COMPARISON: None available.? TECHNIQUE: PA, lateral, and oblique views of the right hand. FINDINGS: No acute fracture or dislocation is seen. There is a question of some subluxation at the first MCP joint. There is some bony irregularity involving the distal aspect of the first metacarpal along the radial aspect degenerative in nature. Could represent old ligament is injury. Some mild irregularity also seen along the ulnar aspect There is also a flared appearance to the base of the fifth metacarpal. This could indicate an old. Correlation recommended clinically XR/XR hand RT 2V IMPRESSION: There is no acute finding in the hand. ? Findings in the first MCP joint as described and mild subluxation here would need to be considered and some bony changes involving the distal aspect first metacarpal could be degenerative or posttraumatic. Correlation recommended clinically. If further evaluation is warranted recommend MRI. Dictated By: Elmer Butts MD Signed By: <Electronically signed by Elmer Butts MD in OV> 12/28/22 1521 DD/ 1437 TD/TT:? [employer]: GT Discharge Plan Discharge Clinical Impression: Pain of right thumb Patient Disposition: Home, Self-Care Instructions: Arthralgia (ED) Additional Instructions: Your x-rays showed no fracture, there are some degenerative changes seen in the right thumb. Please take anti-inflammatories as directed. Call orthopedics on Friday for follow-up. If any new or worsening symptoms, including but not limited to fevers, chills, increased redness, numbness or tingling anterior thumb or loss of function, occur please return for re-evaluation. Prescriptions: New ibuprofen 600 mg tablet 600 mg PO Q6H PRN (Reason: pain) Qty: 45 0RF No Action cyclobenzaprine 10 mg tablet 10 mg PO TID PRN (Reason: muscle spasm) Qty: 10 0RF ibuprofen 600 mg tablet 600 mg PO Q8H PRN (Reason: pain) Qty: 20 0RF methocarbamol 750 mg tablet 750 mg PO TID PRN (Reason: muscle spasm) Qty: 20 0RF acetaminophen [Tylenol Extra Strength] 500 mg tablet 500 mg PO Q6H PRN (Reason: pain or fever) Qty: 20 0RF lidocaine [Lidoderm] 5 % adhesive patch,medicated 1 patch topical DAILY MDD remove after 12 hours PRN (Reason: pain) Qty: 30 0RF Rx Instructions: leave on most painful area for up to 12 hrs naproxen 500 mg tablet 500 mg PO BID PRN (Reason: pain) 10 Days Qty: 20 0RF cyclobenzaprine 5 mg tablet 5 mg PO Q8H PRN (Reason: pain (scale score 7-10)) 5 Days Qty: 14 0RF amoxicillin-pot clavulanate 875-125 mg tablet 1 tab PO BID 7 Days Qty: 14 0RF guaifenesin 200 mg/5 mL liquid 200 mg PO Q4H PRN (Reason: congestion) Qty: 118 0RF doxycycline monohydrate 100 mg capsule 100 mg PO BID Qty: 14 0RF ibuprofen 600 mg tablet 600 mg PO Q8H PRN (Reason: fever or pain) Qty: 30 0RF amoxicillin-pot clavulanate 875-125 mg tablet 1 tab PO Q12H 10 Days Qty: 20 0RF Referrals: [facility] [place] [facility] [Provider Group] Interventions: ED Discharge Assessment Last Done: 12/28/22 22:43
[2022-12-28] MEDS: Ketorolac Tromethamine 30 MG/ML VIAL IM (22:37)
== END 2022-12-28 22:46 | disposition home or self-care (01) ==
PROVIDERS: Emergency Provider Internal Medicine
DX: M79.644 Pain in right finger(s) (principal)
CPT/HCPCS: 96372; 99283; 99284; J1885

== ENCOUNTER 2023-05-21 14:11 | Emergency (ER) | payer OTHER, SELFPAY ==
[2023-05-21] VITALS (8 sets, daily range): BP systolic 99–123; BP diastolic 60–69; PULSE 55–79; RESP 16; TEMP 37.2; O2SAT 98–100; BMI 34.2
--- NOTE | 2023-05-21 14:57 | ED_ITS ---
HPI - URI/Sore Throat General Chief Complaint: Fever Stated Complaint: Fever, lightheaded, sore throat Time Seen by Provider: 05/21/23 15:24 Source: patient Mode of arrival: ambulatory Limitations: no limitations History of Present Illness HPI Narrative: 38-year-old male with no significant pmhx presents to the ED today with a complaint of chills, lightheadedness, myalgias and body aches beginning last night. Endorses subjective fever. States he feels lightheaded upon standing and does not recall eating yesterday. Additionally endorses mild sore throat that began yesterday. No known sick contacts. Has not taken any pain medications prior to arrival. He denies fever, headache, nasal congestion, cough, nausea or vomiting, abdominal pain, diarrhea, constipation, dysuria, lower extremity swelling or pain. Denies etoh or ilicit substance use. No recent travel. Related Data Previous Rx's Medication Instructions Recorded amoxicillin 875 mg-potassium 1 tab PO Q12H 10 days #20 tabs 08/20/21 clavulanate 125 mg tablet ibuprofen 600 mg tablet 600 mg PO Q8H PRN pain #20 tabs 10/04/21 methocarbamol 750 mg tablet 750 mg PO TID PRN muscle spasm #20 10/04/21 tabs acetaminophen 500 mg tablet 500 mg PO Q6H PRN pain or fever 10/17/21 (Tylenol Extra Strength) #20 tabs cyclobenzaprine 5 mg tablet 5 mg PO Q8H PRN pain (scale score 10/17/21 7-10) 5 days #14 tabs lidocaine 5 % topical patch 1 patch topical DAILY PRN pain #30 10/17/21 (Lidoderm) ea naproxen 500 mg tablet 500 mg PO BID PRN pain 10 days #20 10/17/21 tabs cyclobenzaprine 10 mg tablet 10 mg PO TID PRN muscle spasm #10 10/23/21 tabs amoxicillin 875 mg-potassium 1 tab PO BID 7 days #14 tabs 03/21/22 clavulanate 125 mg tablet guaifenesin 200 mg/5 mL oral liquid 200 mg (5 mL) PO Q4H PRN 03/21/22 congestion #118 mL doxycycline monohydrate 100 mg 100 mg PO BID #14 caps 10/28/22 capsule ibuprofen 600 mg tablet 600 mg PO Q8H PRN fever or pain 10/28/22 #30 tabs ibuprofen 600 mg tablet 600 mg PO Q6H PRN pain #45 tabs 12/28/22 Allergies Allergy/AdvReac Type Severity Reaction Status Date / Time codeine [CODEINE] Allergy Unknown AGITATION Verified 05/21/23 14:59 Review of Systems 2 Review of Systems: Constitutional: No fever, +chills, fatigue, night sweats, weight changes ENT/Mouth: No ear pain, hearing loss, nasal congestion, sinus pain, rhinorrhea, +sore throat Eyes: No eye pain, swelling, redness, vision changes, discharge Cardio: No chest pain, palpitations, ALBERTO, orthopnea, peripheral edema Pulm: No SOB, cough, sputum, wheezing, dyspnea, hemoptysis GI: No nausea, vomiting, hematemesis, abdominal pain, diarrhea, constipation, hematochezia, melena : No irregular bleeding, dysuria, frequency, urgency, hesitancy, hematuria, flank pain, urinary flow changes, urinary incontinence or retention MSK: No back pain, neck pain, joint pain, +myalgias Skin: No lesions, rashes Neuro: No weakness, numbness, paresthesias, LOC, dizziness, headache, +light headed All other systems reviewed and are negative. [facility] Past Medical History Attestation statement: The following information was validated with the patient. Source: old records reviewed and nursing notes reviewed Social History Social History Patient Tobacco Use Status: Never used Tobacco Advance Directives: No service: No Current occupational status: unemployed Physical Exam 2 Vital Signs: Vital Signs: Last Vital Signs Temp 98.9 F 05/21/23 14:57 Pulse 78 05/21/23 19:34 Resp 16 05/21/23 14:57 BP 112/66 05/21/23 19:06 Pulse Ox 98 05/21/23 19:34 O2 Del Method Room Air 05/21/23 19:34 BMI result Body Mass Index 34.2 Vital signs stable, afebrile Const: General: cooperative, no acute distress, alert and awake; No ill appearing Orientation/consciousness: patient oriented x3 Limitations: no limitations HEENT: Other: Posterior oropharynx with erythema. No edema. No tonsillar exudates. Uvula is midline. No peritonsilar masses. Controlling secretions and speaking in complete sentences. Head: Yes normal to inspection Ears: hearing grossly normal bilaterally General nose exam: Normal external nose present Face and sinus: Yes normal facial exam and Yes sinuses nontender Eyes: General: appearance normal, both eyes and all related structures C onjunctivae: conjunctivae normal Sclerae: sclerae normal Pupils: Equal, round and reactive pupils present Neck: Neck: Yes normal visual inspection, Yes no lymphadenopathy and Yes no meningeal signs Resp: Effort & Inspection: normal respiratory effort Auscultation: clear to auscultation bilaterally Cardio: Rate: regular rate Rhythm: regular rhythm Peripheral pulses: r adial pulses present GI: Other: Abdomen soft, nondistended, nontender to palpation, no rebound tenderness or guarding. Normoactive bowel sounds x4. Inspection: Yes normal to inspection Skin: General skin exam: no rashes or lesions noted Neuro: General: patient oriented x3, gait normal, moves all extremities and no meningeal signs Cranial nerves: Yes CN's II-XII intact bilaterally and Yes Equal, round and reactive pupils present Extrem: General: Yes normal to inspection, Yes capillary refill normal, Yes no joint enlargement and Yes no clubbing, cyanosis or edema Course Course Course Narrative: RME: 38yo M w/no sig PMHx c/o chills, lightheadedness, myalgias/body aches x last night. Admits to feeling pre-syncopal when stands up. +SOB. denies CP, fever EKG, Labs, UA, Viral testing, orthostatics ordered Full HPI, ROS and PE to be performed by primary ED provider. Reevaluation(s) Reevaluation #1: 1610-- CBC with slight leukocytosis to 11.7. No anemia. Chemistry without acute electrolyte abnormality requiring intervention. Lipase WNL. Troponin undetectable. EKG showing normal sinus rhythm with a rate of 64 ppm, QT 390, QTC 402, no acute ischemic changes or ST elevations > unlikely arrhythmia or ACS. PERC score of 0 > unlikely pulmonary embolism. Serology is negative for COVID, influenza, strep. > awaiting orthostatic vital signs 1640-- orthostatic vital signs negative however there was a 20 mmHg drop in systolic BP upon standing, will administer 1 L IV fluids and re-evaluate. > I discussed unremarkable workup with patient. He likely has a viral infection. As he has no tonsillar exudates and tested negative for strep I do not believe that he has strep throat. He has no lymphadenopathy or splenomegaly to suggest mono so swab will not be obtained. 1920-- orthostatic vital signs improved with 1 L of fluid. No longer symptomatic on standing. On review of previous vital signs, patient's blood pressure typically runs on the low side and is around his baseline. Vital signs have remained stable. Patient is afebrile. Symptoms are consistent with a viral infection. Advised patient that management asymptomatic and may take Tylenol or ibuprofen as needed for body aches or fevers. Advised to stay hydrated. Discussed strict return precautions. All questions answered at this time. Patient is agreeable disposition stable for discharge. Medications Administered Discontinued Medications Generic Name Dose Route Start Last Admin Trade Name Freq PRN Reason Stop Dose Admin Sodium Chloride 1,000 mls @ 999 mls/hr 05/21/23 16:15 05/21/23 19:27 Ns IV 05/21/23 17:15 Infused .Q1H1M MAGO Infusion Sodium Chloride 1,000 mls @ 999 mls/hr 05/21/23 16:15 05/21/23 19:27 Ns IV 05/21/23 17:15 Infused .Q1H1M MAGO Infusion Medical Decision Making Medical Decision Making [facility] Narrative: 38-year-old male with no significant pmhx presents to the ED today with a complaint of chills, lightheadedness, myalgias and body aches beginning last night. Vital signs stable, afebrile. Bilateral EACs without erythema or edema, TMs intact without perforation or effusion. Exam nonfocal. Cerebellum intact. Ambulating with steady gait. Abdomen is soft, NT/ND, no rebound tenderness or guarding. Normoactive bowel sounds x4. Clinical concern for viral syndrome, strep throat, gastroenteritis, orthostatic hypotension, dehydration. Unlikely pneumonia, bronchitis, RSV, mono. Low suspicion for arrhythmia, ACS, PE. Unlikely CVA/TIA, cerebellar stroke, dissection. Plan at this time is basic labs, EKG, serology, re-evaluation. Differential Diagnosis Differential Diagnoses: The differential diagnosis associated with the presentation includes As above. Admission/Observation Not indicated Lab Data [facility] Lab Attestation statement: I reviewed the patient's lab results. As above. 05/21/23 15:14 05/21/23 15:14 Labs: Lab Results 05/21/23 Range/Units 15:14 WBC 11.7 H (4.8-10.8) X10*3/uL RBC 4.66 (4.60-5.80) X10*6/uL Hgb 14.1 (14.0-18.0) g/dl Hct 40.6 L (42.0-52.0) % MCV 87.1 (80.0-98.0) fL MCH 30.3 (27.0-33.0) pg MCHC 34.7 (31.0-36.0) g/dl RDW 12.0 (11.0-16.0) % Plt Count 172 (160-400) X10*3/uL MPV 11.6 (9.4-12.4) fL Immature Gran % (Auto) 0.4 (0.0-0.4) % Neut % (Auto) 82.6 H (45-73) % Lymph % (Auto) 11.1 L (20-40) % [place] % (Auto) 5.5 (2-11) % Eos % (Auto) 0.3 (0-4) % Baso % (Auto) 0.1 (0-2) % Lymph # (Auto) 1.3 (1.2-4.9) X10*3/uL [place] # (Auto) 0.6 (0.1-1.2) X10*3/uL Eos # (Auto) 0.0 (0.0-0.4) X10*3/uL Baso # (Auto) 0.0 (0.0-0.2) X10*3/uL Abs Immat Gran (auto) 0.05 H (0.00-0.03) X10*3/uL Absolute Neuts (auto) 9.6 H (2.0-8.3) x10*3/uL Absolute Nucleated RBC 0.000 (0.0-0.012) X10*3/uL Nucleated RBC % (auto) 0.0 (0.0-0.2) /100WBC Sodium 139 (135-145) mmol/L Potassium 3.4 (3.3-5.1) mmol/L Chloride 104 (96-108) mmol/L Carbon Dioxide 30 H (22-29) mmol/L Anion Gap 8 L (12-20) BUN 10 (9-16) mg/dL Creatinine 0.93 (0.5-1.4) mg/dL Estim Creat Clear Calc 136.7 Estimated GFR > 60 Random Glucose 103 (60-115) mg/dL Calcium 9.1 (8.4-10.2) mg/dL Magnesium 1.7 (1.6-2.6) mg/dL Total Bilirubin 0.9 (0.0-1.0) mg/dL Direct Bilirubin 0.3 (0.0-0.5) mg/dL AST 22 (5-37) U/L ALT 21 (0-40) U/L Alkaline Phosphatase 64 (39-117) U/L Troponin I High Sens < 2.7 (<3.5-35.0) ng/L Total Protein 7.3 (6.5-8.0) g/dL Albumin 4.1 (3.5-5.0) g/dL COVID-19 (MYAH) Negative (Negative) COVID-19 Clin Com See Note Influenza Type A (TOMASA) Negative (Negative) Influenza Type B (TOMASA) Negative (Negative) Influenza A & B Note See Note S. pyogenes GrpA TOMASA Negative (Negative) Independent Interpretation I performed an independent interpretation of an: EKG (EKG showing normal sinus rhythm with a rate of 64 beats per minute, QT 390, QTC 402, no acute ischemic changes or ST elevations.) External Record Review External record reviewed: Inpatient record Prescription Management I considered prescription management with: Pain Medication Critical Care Time Critical Care Time Critical Care Time: No Discharge Plan Discharge Clinical Impression: Viral infection Patient Disposition: Home, Self-Care Instructions: Viral Syndrome (ED) Additional Instructions: You tested negative for COVID, influenza, strep throat however your symptoms are consistent with a viral syndrome. Management for viral syndrome is symptomatic. You may take ibuprofen and Tylenol as needed for body aches or fevers. You became lightheaded upon standing however this improved with fluid administration. Please remember to stay hydrated and to eat during the day. If symptoms persist or worsen please return to the emergency department. In the case of an emergency call 911. Prescriptions: No Action cyclobenzaprine 10 mg tablet 10 mg PO TID PRN (Reason: muscle spasm) Qty: 10 0RF ibuprofen 600 mg tablet 600 mg PO Q8H PRN (Reason: pain) Qty: 20 0RF methocarbamol 750 mg tablet 750 mg PO TID PRN (Reason: muscle spasm) Qty: 20 0RF acetaminophen [Tylenol Extra Strength] 500 mg tablet 500 mg PO Q6H PRN (Reason: pain or fever) Qty: 20 0RF lidocaine [Lidoderm] 5 % adhesive patch,medicated 1 patch topical DAILY MDD remove after 12 hours PRN (Reason: pain) Qty: 30 0RF Rx Instructions: leave on most painful area for up to 12 hrs naproxen 500 mg tablet 500 mg PO BID PRN (Reason: pain) 10 Days Qty: 20 0RF cyclobenzaprine 5 mg tablet 5 mg PO Q8H PRN (Reason: pain (scale score 7-10)) 5 Days Qty: 14 0RF amoxicillin-pot clavulanate 875-125 mg tablet 1 tab PO BID 7 Days Qty: 14 0RF guaifenesin 200 mg/5 mL liquid 200 mg PO Q4H PRN (Reason: congestion) Qty: 118 0RF doxycycline monohydrate 100 mg capsule 100 mg PO BID Qty: 14 0RF ibuprofen 600 mg tablet 600 mg PO Q8H PRN (Reason: fever or pain) Qty: 30 0RF ibuprofen 600 mg tablet 600 mg PO Q6H PRN (Reason: pain) Qty: 45 0RF amoxicillin-pot clavulanate 875-125 mg tablet 1 tab PO Q12H 10 Days Qty: 20 0RF Referrals: Physician,Unknown J [Primary Care Provider] - Stand Alone Forms: Work/School Release Interventions: ED Discharge Assessment Last Done: 05/21/23 19:34 Discharge Date/Time: 05/21/23 19:35
--- NOTE | 2023-05-21 14:59 | ECG_ITS ---
Test Reason : LIGHTHEADED Blood Pressure : / mmHG Vent. Rate : 064 BPM Atrial Rate : 064 BPM P-R Int : 158 ms QRS Dur : 084 ms QT Int : 390 ms P-R-T Axes : 060 -18 -01 degrees QTc Int : 402 ms Normal sinus rhythm Normal ECG No previous ECGs available Referred By: Zabrina Arias Electronically Signed By:VESNA WOODARD MD
[2023-05-21 15:23] LABS: MANUAL DIFF FLAG NO
[2023-05-21 15:28] LABS: Basophils Percent Auto 0.1 % (0-2); Eosinophils Percent Auto 0.3 % (0-4); Hematocrit 40.6 % (42.0-52.0); Hemoglobin 14.1 g/dl (14.0-18.0); Imm Gran Abs Auto 0.05 X10*3/uL (0.00-0.03); Imm Gran Pct Auto 0.4 % (0.0-0.4); Lymphocytes Absolute Auto 1.3 X10*3/uL (1.2-4.9); Lymphocytes Percent Auto 11.1 % (20-40); Mean Corpuscular HGB Conc 34.7 g/dl (31.0-36.0); Mean Corpuscular Hemoglobin 30.3 pg (27.0-33.0); Mean Corpuscular Volume 87.1 fL (80.0-98.0); Mean Platelet Volume 11.6 fL (9.4-12.4); Monocytes Absolute Auto 0.6 X10*3/uL (0.1-1.2); Monocytes Percent Auto 5.5 % (2-11); Neutrophils Absolute Auto 9.6 x10*3/uL (2.0-8.3); Neutrophils Percent Auto 82.6 % (45-73); Platelet Count 172 X10*3/uL (160-400); Red Blood Count 4.66 X10*6/uL (4.60-5.80); White Blood Count 11.7 X10*3/uL (4.8-10.8)
[2023-05-21 15:38] LABS: Alanine Aminotransferase 21 U/L (0-40); Albumin Level 4.1 g/dL (3.5-5.0); Alkaline Phosphatase 64 U/L (39-117); Anion Gap 8 (12-20); Aspartate Amino Transferase 22 U/L (5-37); Bilirubin Direct 0.3 mg/dL (0.0-0.5); Bilirubin Total 0.9 mg/dL (0.0-1.0); Blood Urea Nitrogen 10 mg/dL (9-16); Calcium 9.1 mg/dL (8.4-10.2); Carbon Dioxide 30 mmol/L (22-29); Chloride 104 mmol/L (96-108); Creatinine Clr Calc Pharmacy 136.7; Estimated Glomerular Filt Rate > 60; Glucose Random 103 mg/dL (60-115); Magnesium 1.7 mg/dL (1.6-2.6); Potassium 3.4 mmol/L (3.3-5.1); Sodium 139 mmol/L (135-145); Total Protein 7.3 g/dL (6.5-8.0)
[2023-05-21 15:44] LABS: COVID-19 Test Negative (Negative); IDNOW Serial# 9DB6401D; IDNOW Serial# BCCEAD1C; Influenza A Negative (Negative); Influenza B2 Negative (Negative)
[2023-05-21 15:46] LABS: IDNOW Serial# 08D9AD1C; Strep A Nucleic Acid Negative (Negative); Troponin-I High Sensitivity < 2.7 ng/L (<3.5-35.0)
[2023-05-21] MEDS: 0.9 % Sodium Chloride 1,000 ML 999 ML IV ×2 (18:06→18:46)
== END 2023-05-21 19:35 | disposition home or self-care (01) ==
PROVIDERS: Physician Assistant; Emergency Provider Emergency Medicine
DX: J02.9 Acute pharyngitis, unspecified (principal); B34.9 Viral infection, unspecified; R50.9 Fever, unspecified; R42 Dizziness and giddiness; M79.10 Myalgia, unspecified site; Z11.52 Encounter for screening for COVID-19; Z79.899 Other long term (current) drug therapy; Z20.822 Contact with and (suspected) exposure to COVID-19
CPT/HCPCS: 36415; 80048; 80076; 83735; 84484; 85025; 87502; 87635; 87651; 93005; 96360; 99284

== ENCOUNTER 2025-02-28 15:32 | Emergency (ER) | payer MEDICAID, SELFPAY ==
--- NOTE | ~2025-02-28 | XR_ITS ---
EXAMINATION: XR KNEE, LEFT CLINICAL INFORMATION: pain, injury COMPARISON: None available. TECHNIQUE: Four views of the left knee. FINDINGS: No fracture or joint effusion. Alignment is anatomic. Joint spaces are maintained. No abnormal soft tissue calcification. XR/XR knee LT 4V IMPRESSION: Normal left knee. Electronically signed by: Devon Tai MD 02/28/2025 04:34 PM EDT
--- NOTE | ~2025-02-28 | US_ITS ---
CLINICAL HISTORY: left lower leg pain swelling Venous duplex ultrasound left lower extremity Comparison: None provided Findings: The visualized deep veins are fully compressible with normal Doppler color flow and spectral tracings. No popliteal cyst. IMPRESSION: 1. Negative for left lower extremity deep vein thrombosis. This document has been electronically signed by: Silverio Marin MD on 02/28/2025 17:28:16
[2025-02-28 16:02] VITALS: BP 118/65; PULSE 80; RESP 17; TEMP 36.8; O2SAT 99; BMI 36.3
--- NOTE | 2025-02-28 16:05 | ED_ITS ---
HPI - General Adult General Chief complaint: Extremity Injury, Lower Stated complaint: left leg injury Time Seen by Provider: 02/28/25 19:01 Source: patient Mode of arrival: ambulatory Limitations: no limitations History of Present Illness ED Provider: Dr. Sasha Cagle HPI narrative: Patient comes to the emergency room complaining of left-sided calf pain. Patient states that he was walking in the sidewalk, missed a step of the curve. Patient states that he heard a loud pop coming from his calf. Patient states that now he is unable to bear weight. Patient denies any ankle or knee pain. Related Data Previous Rx's ?Medication ?Instructions ?Recorded amoxicillin 875 mg-potassium 1 tab PO Q12H 10 days #20 tabs 08/20/21 clavulanate 125 mg tablet ibuprofen 600 mg tablet 600 mg PO Q8H PRN pain #20 t abs 10/04/21 methocarbamol 750 mg tablet 750 mg PO TID PRN muscle s pasm #20 10/04/21 tabs acetaminophen 500 mg tablet 500 mg PO Q6H PRN pain or fever 10/17/21 (Tylenol Extra Strength) #20 tabs cyclobenzaprine 5 mg tablet 5 mg PO Q8H PRN pain (scal e score 10/17/21 7-10) 5 days #14 tabs lidocaine 5 % topical patch 1 patch topical DAILY PRN pain #30 10/17/21 (Lidoderm) ea naproxen 500 mg tablet 500 mg PO BID PRN pain 10 da ys #20 10/17/21 tabs cyclobenzaprine 10 mg tablet 10 mg PO TID PRN muscle s pasm #10 10/23/21 tabs amoxicillin 875 mg-potassium 1 tab PO BID 7 days #14 t abs 03/21/22 clavulanate 125 mg tablet guaifenesin 200 mg/5 mL oral liquid 200 mg (5 mL) PO Q 4H PRN 03/21/22 congestion #118 mL doxycycline monohydrate 100 mg 100 mg PO BID #14 caps 10/28/22 capsule ibuprofen 600 mg tablet 600 mg PO Q8H PRN fever or p ain 10/28/22 #30 tabs ibuprofen 600 mg tablet 600 mg PO Q6H PRN pain #45 t abs 12/28/22 baclofen 10 mg tablet 10 mg PO BID #10 tabs ketorolac 10 mg tablet 10 mg PO Q8H PRN pain #10 ta bs 02/28/25 Allergies Allergy/AdvReac Type Severity Reaction Status Date / Time codeine (CODEINE) Allergy Unknown AGITATION Verified 02/28/25 16:05 Review of Systems Review of Systems: Constitutional : No Weight loss, No Fever, No Chills, No Night Sweats, No Fatigue, No Malaise ENT/Mouth : No Hearing loss, No Ear Pain, No Nasal Congestion, No Sinus Pain, No Hoarseness, No sore throat, No Rhinorrhea, No Swallowing Difficulty Eyes: No Eye Pain, No Swelling, No Redness, No Foreign Body, No Discharge, No Vision Changes Cardiovascular : No Chest Pain, No SOB, No Dyspnea on Exertion, No Orthopnea, No Edema, No Palpitations Respiratory : No Cough, No Sputum, No Wheezing, No Smoke Exposure, No Dyspnea Gastrointestinal : No Nausea, No Vomiting, No Diarrhea, No Constipation, No abdominal Pain, No Hematochezia, No Melena Genitourinary : no irregular bleeding, No Dysuria, No Urinary Frequency, No Hematuria, No Urinary Incontinence, No Urgency, No Flank Pain, No Urinary Flow Changes, No Hesitancy Musculoskeletal complaining of left calf pain No Myalgias, No Joint Swelling Skin : No Skin Lesions, No rash Neuro : No Weakness, No Numbness, No Paresthesias, No Loss of Consciousness, No Dizziness, No Headache Psych : No Anxiety/Panic, No Depression, No SI/HI/AH/VH, No Social Issues, Heme/Lymph: No Bruising, No Bleeding,No Lymphadenopathy Endocrine : No Polyuria, No Polydipsia, No Temperature Intolerance [facility] Social History Social History Alcohol intake: current Alcohol intake frequency: holidays/special occasions only Patient Tobacco Use Status: Never used Tobacco Smoked in Last 30 Days: No Use of substances other than those prescribed or required for medical reasons: Yes Substance Use Type: Marijuana Substance Use Frequency: Occasionally Last Used Substance: Hours (ago) Advance Directives: No Advance Directives Information Provided: Yes Do you have a plan to hurt others: No Plan service: No Current occupational status: unemployed Physical Exam ED Exam Exam: Appearance: Alert. Oriented X3. No acute distress. Eyes: Pupils equal, round and reactive to light. ENT: Pharynx normal. Neck: Normal inspection. Neck supple. No lymph nodes noted. No crepitus CVS: Normal heart rate and rhythm. Pulses normal. Normal S1 and S2 Respiratory: No respiratory distress. Breath sounds normal. No Wheezing. No rales Abdomen: Soft and nontender. No rigidity. No distention. Skin: Skin warm and dry. Normal skin color. Normal skin turgor. Extremities: No lower extremity edema. No Lacerations. No Rash, no abnormality in patient's right leg. Patient's left leg no obvious deformity, pain to palpation over the calf, Neuro: Oriented X 3. No motor deficit. No sensory deficit. Moving all extremities. No slurred speech. CN 2 through 12 grossly intact Psych: calm, cooperative, normal affect Vital Signs: Vital Signs - 24 hr 02/28/25 16:02 02/28/25 18:59 Temperature 98.2 F 97.7 F Pulse Rate 80 60 Respiratory Rate 17 20 Blood Pressure 118/65 106/64 Pulse Oximetry 99 97 Oxygen Delivery Method Room Air Room Air BMI result Body Mass Index 36.3 Course Course Course Narrative: Rapid medical examination performed in triage by Monica Weinstein PA-C. Patient is a 39 year old assigned male at presenting to the emergency department with left knee pain after a pop. Patient states that he was walking when his left knee popped and then he immediately had pain and couldn't bear weight. Detailed physical exam and review of systems are deferred to the director patient accounting. Imaging ordered. Patient placed back in the waiting room pending room availability and results. Medical Decision Making Medical Decision Making MDM Narrative: I discussed the radiology results with the patient and his physical exam. Venous ultrasound does not show any acute abnormality X-ray of the knee does not show any acute abnormality. I discussed with the patient that he may have a gastrocnemius tear versus tendon rupture. Patient's ultrasound is negative for DVT. Patient can not bear any weight. Patient was provided with crutches and a boot. Discussed with the patient that this may take several weeks to heal Differential Diagnosis Differential Diagnoses: The differential diagnosis associated with the presentation includes (As above) Admission/Observation Consideration of admission/observation: Escalation of care including admission/observation considered (Given patient's presentation, observation was considered) Independent Interpretation I performed an independent interpretation of an: Plain X-Ray and Ultrasound Radiology Impression Discussion of test interpretation with radiology: I have reviewed the radiologist's reading. Radiologist Impression: The visualized deep veins are fully compressible with normal Doppler color flow and spectral tracings. No popliteal cyst. IMPRESSION: 1. Negative for left lower extremity deep vein thrombosis. No fracture or joint effusion. Alignment is anatomic. Joint spaces are maintained. No abnormal soft tissue calcification. XR/XR knee LT 4V IMPRESSION: Normal left knee. Critical Care Time Critical Care Time Critical Care Time: Yes Total Critical Care Time: 35 Attestation: I have personally provided critical care time. Time includes review of lab data, radiology results, discussion with consultants, and monitoring for potential decompensation. Intervention performed as documented. Discharge Plan Discharge Clinical Impression: Gastrocnemius muscle tear Patient Disposition: Home, Self-Care Instructions: Muscle Strain (ED), P.R.I.C.E. Treatment (ED) Additional Instructions: Please follow-up with your primary care physician tomorrow. If you have any worsening or new symptoms, please return to the emergency room or call 911 Prescriptions: New ketorolac 10 mg tablet 10 mg PO Q8H PRN (Reason: pain) Qty: 10 0RF Rx Instructions: Do not use this medication with ibuprofen or any NSAIDs, only Tylenol if needed baclofen 10 mg tablet 10 mg PO BID Qty: 10 0RF No Action cyclobenzaprine 10 mg tablet 10 mg PO TID PRN (Reason: muscle spasm) Qty: 10 0RF ibuprofen 600 mg tablet 600 mg PO Q8H PRN (Reason: pain) Qty: 20 0RF methocarbamol 750 mg tablet 750 mg PO TID PRN (Reason: muscle spasm) Qty: 20 0RF acetaminophen [Tylenol Extra Strength] 500 mg tablet 500 mg PO Q6H PRN (Reason: pain or fever) Qty: 20 0RF lidocaine [Lidoderm] 5 % adhesive patch,medicated 1 patch topical DAILY MDD remove after 12 hours PRN (Reason: pain) Qty: 30 0RF Rx Instructions: leave on most painful area for up to 12 hrs naproxen 500 mg tablet 500 mg PO BID PRN (Reason: pain) 10 Days Qty: 20 0RF cyclobenzaprine 5 mg tablet 5 mg PO Q8H PRN (Reason: pain (scale score 7-10)) 5 Days Qty: 14 0RF amoxicillin-pot clavulanate 875-125 mg tablet 1 tab PO BID 7 Days Qty: 14 0RF guaifenesin 200 mg/5 mL liquid 200 mg PO Q4H PRN (Reason: congestion) Qty: 118 0RF doxycycline monohydrate 100 mg capsule 100 mg PO BID Qty: 14 0RF ibuprofen 600 mg tablet 600 mg PO Q8H PRN (Reason: fever or pain) Qty: 30 0RF ibuprofen 600 mg tablet 600 mg PO Q6H PRN (Reason: pain) Qty: 45 0RF amoxicillin-pot clavulanate 875-125 mg tablet 1 tab PO Q12H 10 Days Qty: 20 0RF Print Language: Polish
[2025-02-28 18:59] VITALS: BP 106/64; PULSE 60; RESP 20; TEMP 36.5; O2SAT 97
[2025-02-28 21:45] VITALS: BP 109/74; PULSE 58; RESP 12; TEMP 36.6; O2SAT 100
[2025-02-28 22:13] VITALS: BP 109/74; PULSE 58; RESP 12; TEMP 36.6; O2SAT 100
== END 2025-02-28 22:14 | disposition home or self-care (01) ==
PROVIDERS: Emergency Provider Emergency Medicine
DX: S89.92XA Unspecified injury of left lower leg, initial encounter (principal); M79.605 Pain in left leg; R60.0 Localized edema; M25.562 Pain in left knee; X50.1XXA Overexertion from prolonged static or awkward postures, initial encounter; Y93.01 Activity, walking, marching and hiking; Y92.480 Sidewalk as the place of occurrence of the external cause; Y99.8 Other external cause status
CPT/HCPCS: 73564; 93971; 96372; 99284; J1885

== ENCOUNTER → 2025-02-28 16:06 | Outpatient (BNV) | payer OTHER, SELFPAY | PROVIDERS: Visit Provider Radiology Diagnostic Radiology | DX: R22.42 Localized swelling, mass and lump, left lower limb (principal); S89.92XA Unspecified injury of left lower leg, initial encounter; M79.662 Pain in left lower leg | CPT/HCPCS: 73564; 93971 ==